=== PATIENT | female | born 1995 | race American Indian/Alaskan Native ===

== ENCOUNTER 2018-08-10 17:00 | Emergency (ER) | payer OTHER ==
--- NOTE | 2018-08-10 18:17 | EDM.PDOC ---
<Anupama Boucher - Last Filed: 08/10/18 18:11> ED HPI GENERAL MEDICAL PROBLEM - General Chief Complaint: Skin Complaint Stated Complaint: RASH ON HANDS Time Seen by Provider: 08/10/18 17:51 Source of Information: Reports: Patient, RN Notes Reviewed, Significant Other History Limitations: Reports: No Limitations - History of Present Illness INITIAL COMMENTS - FREE TEXT/NARRATIVE: Ingrid is a 22 year old female who presents to the ED with a rash on the volar aspect of her hands. She is accompanied by her mother and fiance. She states that she first noticed it on 3 days ago (Friday) after staying in the [facility] in [place]. She states that this rash is itchy, burning, and spreading up her forearm. She denies any new allergens except the soap at the hotel. She also endorses spending some time outdoors in the cold and wind without gloves on. She states she had tried some alcohol wipes with no relief. She also used Benadryl cream a few times which did temporize the itch. Patient denies any allergies. - Related Data Allergies Allergy/AdvReac Type Severity Reaction Status Date / Time No Known Allergies Allergy Verified 08/10/18 17:10 Home Meds: Home Meds Permethrin 60 gm TP ASDIRECTED #1 tube 08/10/18 [Rx] Past Medical History - Past Health History Medical/Surgical History: Denies Medical/Surgical History Social & Family History - Tobacco Use Smoking Status *Q: Never Smoker - Caffeine Use Caffeine Use: Reports: None - Recreational Drug Use Recreational Drug Use: No ED ROS GENERAL - Review of Systems Review Of Systems: ROS reveals no pertinent complaints other than HPI. ED EXAM, SKIN/RASH Exam: See Below Exam Limited By: No Limitations General Appearance: Alert, WD/WN, No Apparent Distress Throat/Mouth: Normal Inspection Head: Atraumatic, Normocephalic Neck: Normal Inspection, Supple, Non-Tender, Full Range of Motion Respiratory/Chest: No Respiratory Distress Peripheral Pulses: 4+: Radial (L), Radial (R) Location, Skin: Upper Extremity, Right, Upper Extremity, Left Characteristics: Macular, Linear, Erythematous, Other (volar aspect of bilateral hands, blanchable, pink macular rash that is somewhat linear in nature. sparse. spares the web space of the fingers and palms. patient does have a few brown linear scabs from scratching) Associated features: No: Warmth, Tenderness, Swelling Course - Vital Signs Last Recorded V/S: Last Vital Signs Temp 98.1 F 08/10/18 17:07 Pulse 82 08/10/18 17:07 Resp 18 08/10/18 17:07 BP 123/66 08/10/18 17:07 Pulse Ox 99 08/10/18 17:07 Departure - Departure Disposition: Home, Self-Care 01 Clinical Impression: Scabies - Discharge Information Prescriptions: Permethrin 60 gm TP ASDIRECTED #1 tube Instructions: Scabies, Adult Referrals: PCP,Not In Area [Primary Care Provider] - Forms: ED Department Discharge Additional Instructions: Apply the cream to the affected areas one time. Repeat in 2 weeks. may use OTC lotion free of dyes and perfumes to help with pruritus in the meantime. Wash bedding, etc to prevent reinfection. Scabies is spread by direct contact. Do you best to keep your hands covered to prevent spread. Follow-up with family medicine if not resolved in 3 weeks. Please return the ER if symptoms change or worsen. <Theresa Robles F - Last Filed: 08/10/18 23:18> ED HPI GENERAL MEDICAL PROBLEM - History of Present Illness INITIAL COMMENTS - FREE TEXT/NARRATIVE: I have seen the patient and agree with the HPI as documented by KOKI Agrawal. Correction to HPI, The rash is on the dorsal aspect of the bilateral hands. Patient's significant other is also complaining of symptoms. ED ROS GENERAL - Review of Systems Review Of Systems: See Below Constitutional: Denies: Fever, Chills ED EXAM, SKIN/RASH Exam: See Below Neurological: Alert, Oriented, Normal Cognition Psychiatric: Normal Affect, Normal Mood Skin: Warm, Dry, Other (erythematous burrows appreciated to the dorsal bilateral hands) Course - Re-Assessments/Exams Free Text/Narrative Re-Assessment/Exam: 08/10/18 18:17 I have seen the patient and agree with the HPI, ROS and PE as documented buy Koki Agrawal Discharge instructions as documented. Departure - Departure Time of Disposition: 18:21 Condition: Fair - Discharge Information *PRESCRIPTION DRUG MONITORING PROGRAM REVIEWED*: No *COPY OF PRESCRIPTION DRUG MONITORING REPORT IN PATIENT TRACE: No
== END 2018-08-10 18:50 | disposition home or self-care (01) ==
LOC: JD.ED 17:00
DX: O98.819 Other maternal infectious and parasitic diseases complicating pregnancy, unspecified trimester (principal); B86 Scabies; Z3A.00 Weeks of gestation of pregnancy not specified
CPT/HCPCS: 99283

== ENCOUNTER 2018-11-22 06:04 | Inpatient (IN) | payer OTHER ==
[2018-11-22] MEDS ORDERED: Sodium Chloride 0.9% 10 ML Syringe FLUSH PRN (06:50)
[2018-11-22] MEDS ORDERED: Nalbuphine 20 MG/ML 1 ML Syringe IVPUSH PRN (06:50)
[2018-11-22] MEDS ORDERED: Lidocaine 1% 50 ML MDV INJECT ONE (06:50)
[2018-11-22] MEDS ORDERED: Oxytocin/Lactated Ringers 10 UNIT/1,000 ML BAG IV SCH (07:00)
[2018-11-22] MEDS ORDERED: Lactated Ringers 1,000 ML IV SCH (07:00)
--- NOTE | 2018-11-22 08:39 | PCM.LDHP ---
L&D History of Present Illness - General Date of Service: 11/22/18 Admit Problem/Dx: Patient Status Order with Admit Dx/Problem 11/22/18 06:19 Patient Status [ADT] Routine 11/22/18 06:50 Patient Status [ADT] Routine Admission Diagnosis/Problem Admission Diagnosis/Problem Source of Information: Patient History Limitations: Reports: No Limitations - History of Present Illness Introduction:: Patient is a 23 y/o at 37 4/7 wks who presents in labor. Seen yesterday for slight spotting / contractions and found to only be 1 cm dilated. Was discharged to home. Contracted all through the night and re-presented this AM. SVE showed her to be 4 cm on nursing assessment - Related Data Allergies/Adverse Reactions: Allergies Allergy/AdvReac Type Severity Reaction Status Date / Time No Known Allergies Allergy Verified 08/24/18 17:32 Home Medications: Home Meds Permethrin 60 gm TP ASDIRECTED #1 tube 08/10/18 [Rx] Past Medical History S[employer]KER History: Reports: : 1 Para: 0 - Past Surgical History HEENT Surgical History: Reports: Oral Surgery (tooth extraction) Social & Family History - Family History Family Medical History: Noncontributory - Tobacco Use Smoking Status *Q: Never Smoker Second Hand Smoke Exposure: No - Caffeine Use Caffeine Use: Reports: None - Alcohol Use Alcohol Use History: No - Recreational Drug Use Recreational Drug Use: No H&P Review of Systems - Review of Systems: Review Of Systems: See Below General: Reports: No Symptoms Pulmonary: Reports: No Symptoms Cardiovascular: Reports: No Symptoms Gastrointestinal: Reports: No Symptoms Genitourinary: Reports: No Symptoms Musculoskeletal: Reports: No Symptoms Psychiatric: Reports: No Symptoms Neurological: Reports: No Symptoms L&D Exam - Exam Exam: See Below - Vital Signs Weight: 83.461 kg - OB Specific Contraction Intensity: Moderate to Strong Movement: Active Heart Tones: Present Heart Tones per Min: 145 Heart Rate (FHR) Variability: Moderate (6-25 bmp) Presentation: Vertex - Whitt Score Whitt Score Cervix Position: Midposition Whitt Score Consistency: Medium Whitt Score Effacement: 51-70% Whitt Score Dilation: 3-4 cm Whitt Score 's Station: -2 Whitt Score Total: 7 - Exam General: Alert, Oriented, Cooperative Lungs: Clear to Auscultation, Normal Respiratory Effort Cardiovascular: Regular Rate, Regular Rhythm GI/Abdominal Exam: Soft, Non-Tender Genitourinary: Normal external exam Extremities: Normal Inspection Skin: Warm, Dry, Intact - Patient Data Lab Results Last 24 hrs: Laboratory Results - last 24 hr 11/22/18 11/22/18 Range/Units 07:10 07:10 WBC 11.78 H (3.98-10.04) K/mm3 RBC 4.02 (3.98-5.22) M/mm3 Hgb 10.0 L (11.2-15.7) gm/L Hct 32.5 L (34.1-44.9) % MCV 80.8 (79.4-94.8) fl MCH 24.9 L (25.6-32.2) pg MCHC 30.8 L (32.2-35.5) g/dl RDW Std Deviation 42.5 (36.4-46.3) fL Plt Count 214 (182-369) K/mm3 MPV 12.4 H (9.4-12.3) fl Neut % (Auto) 82.2 H (34.0-71.1) % Lymph % (Auto) 12.3 L (19.3-51.7) % [place] % (Auto) 4.6 L (4.7-12.5) % Eos % (Auto) 0 L (0.7-5.8) Baso % (Auto) 0.1 (0.1-1.2) % Neut # (Auto) 9.68 H (1.56-6.13) K/mm3 Lymph # (Auto) 1.45 (1.18-3.74) K/mm3 [place] # (Auto) 0.54 H (0.24-0.36) K/mm3 Eos # (Auto) 0.00 L (0.04-0.36) K/mm3 Baso # (Auto) 0.01 (0.01-0.08) K/mm3 Blood Type A POSITIVE Gel Antibody Screen Negative Result Diagrams: 11/22/18 07:10 - Problem List (1) 37 weeks gestation of SNOMED Code(s): 83309808 ICD Code: Z3A.37 - 37 WEEKS GESTATION OF Status: Acute Current Visit: Yes (2) Normal labor SNOMED Code(s): 74830932 ICD Code: O80 - ENCOUNTER FOR FULL-TERM UNCOMPLICATED DELIVERY; Z37.9 - OUTCOME OF DELIVERY, UNSPECIFIED Status: Acute Current Visit: Yes Problem List Initiated/Reviewed/Updated: Yes Orders Last 24hrs: Active Orders 24 hr Category Date Time Status Patient Status [ADT] Routine ADT 11/22/18 06:50 Active Activity as Tolerated [RC] PFP Care 11/22/18 06:50 Active Communication Order [RC] ASDIRECTED Care 11/22/18 06:50 Active Heart Tones [RC] ASDIRECTED Care 11/22/18 06:50 Active Non Stress Test [RC] PER UNIT ROUTINE Care 11/22/18 06:19 Active Notify Provider [RC] PFP Care 11/22/18 06:50 Active Notify Provider [RC] PRN Care 11/22/18 06:50 Active Peripheral IV Care [RC] . DIRECTED Care 11/22/18 06:50 Active Vital Signs [RC] PER UNIT ROUTINE Care 11/22/18 06:19 Active Regular Diet [DIET] Diet 11/22/18 Breakfast Active AMNISURE RUPTURE MEMBRAN [BF] Stat Lab 11/22/18 06:19 Ordered RAPID PLASMA REAGIN,RPR [CHEM] Routine Lab 11/22/18 07:10 Received Lactated Ringers [Ringers, Lactated] 1,000 ml Med 11/22/18 07:00 Active IV ASDIRECTED Nalbuphine [Nubain] Med 11/22/18 06:50 Active 10 mg IVPUSH Q2H PRN Oxytocin/Lactated Ringers [Pitocin in LR 10 Units/1,000 Med 11/22/18 07:00 Active ML] 10 unit in 1,000 ml IV .CONTINUOUS Sodium Chloride 0.9% [Saline Flush] Med 11/22/18 06:50 Active 10 ml FLUSH ASDIRECTED PRN Electronic Heart Tones Ext w TOCO [WOMSER] Oth 11/22/18 06:50 Ordered Routine Electronic Heart Tones Internal [WOMSER] Per Unit Oth 11/22/18 06:50 Ordered Routine Peripheral IV Insertion Adult [OM.PC] Routine Oth 11/22/18 06:50 Ordered Resuscitation Status Routine Resus Stat 11/22/18 06:19 Ordered Medication Orders Lactated Ringer's (Ringers, Lactated) 1,000 mls @ 100 mls/hr IV ASDIRECTED JUWAN Oxytocin/Lactated Ringer's (Pitocin In Lr 10 Units/1,000 Ml) 10 unit in 1,000 mls @ 500 mls/hr IV .CONTINUOUS JUWAN Nalbuphine HCl (Nubain) 10 mg IVPUSH Q2H PRN PRN Reason: pain Sodium Chloride (Saline Flush) 10 ml FLUSH ASDIRECTED PRN PRN Reason: Keep Vein Open Assessment/Plan Comment:: Labor * Labs on admission * GBS collected yesterday on triage. Contacted lab and they state will not be back until this PM. As patient is full term and without risk factors will not start antibiotics at this time * Pain management per patient preference * Anticipate
--- NOTE | 2018-11-22 10:52 | PCM.PNLD ---
Labor Progress Note - VS & Meds Vital Signs: Last Vital Signs Temp 36.8 C 11/22/18 06:24 Pulse 88 11/22/18 06:24 Resp 16 11/22/18 06:24 BP 122/67 11/22/18 06:24 Pulse Ox 98 11/22/18 06:24 Active Medications: Current Medications Lactated Ringer's (Ringers, Lactated) 1,000 mls @ 100 mls/hr IV ASDIRECTED JUWAN Oxytocin/Lactated Ringer's (Pitocin In Lr 10 Units/1,000 Ml) 10 unit in 1,000 mls @ 500 mls/hr IV .CONTINUOUS JUWAN Nalbuphine HCl (Nubain) 10 mg IVPUSH Q2H PRN PRN Reason: pain Sodium Chloride (Saline Flush) 10 ml FLUSH ASDIRECTED PRN PRN Reason: Keep Vein Open Discontinued Medications Lidocaine HCl (Xylocaine 1%) 10 ml INJECT ONETIME ONE Stop: 11/22/18 06:51 - Uterine Contractions Uterine Monitoring Mode: External [place] Contraction Intensity: Moderate to Strong - Monitoring Monitor Mode: External Ultrasound Heart Rate (FHR) Baseline: 130 Heart Rate (FHR) Variability: Moderate (6-25 bmp) Accelerations: Present, 15x15 Decelerations: None Strip Review: Category I - Vaginal Exam Dilation (cm): 6 Effacement (Percent): 80 Station: -1 Cervical Position: Midposition - Labor Progress (Free Text) Labor Progress: Doing well. Continue present management
--- NOTE | 2018-11-22 11:33 | PCM.SN ---
- Free Text/Narrative Note: 11/22/2018 - 1130 Patient's mother stops nurse and myself. Worried we are traumatizing her daughter by labor lasting so long. Wants us to start pitocin or break her daughter's water. Reviewed with both patient and her mother that pitocin can not be started at this time. Patient is ginette every 3 minutes and making good change. Pitocin might at this time cause harm. I am certainly willing to break her water, but this does not have to be done right now if she doesn't want. While labor can be long and certainly painful this does not mean it is unsafe. Patient voiced an understanding of this. In tub and so does not want to come out to have water broken yet. Patient's mother unhappy, but does not object further Shanita Erickson MD
--- NOTE | 2018-11-22 13:18 | PCM.PNLD ---
Labor Progress Note - VS & Meds Vital Signs: Last Vital Signs Temp 36.8 C 11/22/18 06:24 Pulse 88 11/22/18 06:24 Resp 16 11/22/18 06:24 BP 122/67 11/22/18 06:24 Pulse Ox 98 11/22/18 06:24 Active Medications: Current Medications Lactated Ringer's (Ringers, Lactated) 1,000 mls @ 100 mls/hr IV ASDIRECTED JUWAN Oxytocin/Lactated Ringer's (Pitocin In Lr 10 Units/1,000 Ml) 10 unit in 1,000 mls @ 500 mls/hr IV .CONTINUOUS JUWAN Nalbuphine HCl (Nubain) 10 mg IVPUSH Q2H PRN PRN Reason: pain Last Admin: 11/22/18 11:37 Dose: 10 mg Sodium Chloride (Saline Flush) 10 ml FLUSH ASDIRECTED PRN PRN Reason: Keep Vein Open Discontinued Medications Lidocaine HCl (Xylocaine 1%) 10 ml INJECT ONETIME ONE Stop: 11/22/18 06:51 - Uterine Contractions Uterine Monitoring Mode: External [place] Contraction Intensity: Moderate to Strong - Monitoring Monitor Mode: External Ultrasound Heart Rate (FHR) Baseline: 14 Heart Rate (FHR) Variability: Moderate (6-25 bmp) Accelerations: Present, 15x15 Decelerations: None Strip Review: Category I - Vaginal Exam Dilation (cm): 8 Effacement (Percent): 80 Station: 1 Cervical Position: Anterior - Labor Progress (Free Text) Labor Progress: Doing well. Requests AROM which was done. Fluid clear
[2018-11-22] MEDS ORDERED: Lidocaine 1% 50 ML MDV ONE (15:10)
--- NOTE | 2018-11-22 15:53 | PCM.DEL ---
L & D Note - General Info Date of Service: 11/22/18 - Delivery Note Labor: Spontaneous Delivery Outcome: Livebirth Delivery Method: Spontaneous Vaginal Delivery-Single Delivery Mode: Spontaneous Presentation: Right Occiput Anterior (YANIRA) Nuchal Cord: None Anesthesia Type: None Amniotic Fluid Description: Clear Episiotomy Type: None Laceration: 2nd Degree, Perineal Suture type: Vicryl Suture size: 2-0 Placenta: Intact, Spontaneous Cord: 3 Vessels Estimated Blood Loss: 200 Resuscitation Needed: Yes [place]: Bulb Syringe, Stimulated, Warmed, [place] Used Delivery Comments (Free Text/Narrative):: Patient found to be complete and began pushing. With maternal pushign effort head delivered from an YANIRA presentation. No nuchal cord present. With gentle downward traction the shoulders and body delivered. Infant placed on maternal abdomen. Cord clamped and cut. Cord blood obtained. Placenta allowed time to separate and expelled intact. Inspection of the perineum showed a 2nd degree laceration which was repaired with a 2-0 vicryl in the typical fashion - General Info Date of Service: 11/22/18 - Patient Data Vitals - Most Recent: Last Vital Signs Temp 36.8 C 11/22/18 06:24 Pulse 88 11/22/18 06:24 Resp 16 11/22/18 06:24 BP 122/67 11/22/18 06:24 Pulse Ox 98 11/22/18 06:24 Weight - Most Recent: 83.461 kg Lab Results Last 24 Hours: Laboratory Results - last 24 hr 11/22/18 11/22/18 11/22/18 Range/Units 07:10 07:10 07:10 WBC 11.78 H (3.98-10.04) K/mm3 RBC 4.02 (3.98-5.22) M/mm3 Hgb 10.0 L (11.2-15.7) gm/L Hct 32.5 L (34.1-44.9) % MCV 80.8 (79.4-94.8) fl MCH 24.9 L (25.6-32.2) pg MCHC 30.8 L (32.2-35.5) g/dl RDW Std Deviation 42.5 (36.4-46.3) fL Plt Count 214 (182-369) K/mm3 MPV 12.4 H (9.4-12.3) fl Neut % (Auto) 82.2 H (34.0-71.1) % Lymph % (Auto) 12.3 L (19.3-51.7) % [place] % (Auto) 4.6 L (4.7-12.5) % Eos % (Auto) 0 L (0.7-5.8) Baso % (Auto) 0.1 (0.1-1.2) % Neut # (Auto) 9.68 H (1.56-6.13) K/mm3 Lymph # (Auto) 1.45 (1.18-3.74) K/mm3 [place] # (Auto) 0.54 H (0.24-0.36) K/mm3 Eos # (Auto) 0.00 L (0.04-0.36) K/mm3 Baso # (Auto) 0.01 (0.01-0.08) K/mm3 RPR Non-reactive (NONREACTIVE) Blood Type A POSITIVE Gel Antibody Screen Negative Med Orders - Current: Current Medications Lactated Ringer's (Ringers, Lactated) 1,000 mls @ 100 mls/hr IV ASDIRECTED JUWAN Oxytocin/Lactated Ringer's (Pitocin In Lr 10 Units/1,000 Ml) 10 unit in 1,000 mls @ 500 mls/hr IV .CONTINUOUS JUWAN Nalbuphine HCl (Nubain) 10 mg IVPUSH Q2H PRN PRN Reason: pain Last Admin: 11/22/18 11:37 Dose: 10 mg Sodium Chloride (Saline Flush) 10 ml FLUSH ASDIRECTED PRN PRN Reason: Keep Vein Open Discontinued Medications Lidocaine HCl (Xylocaine 1%) 10 ml INJECT ONETIME ONE Stop: 11/22/18 06:51 Lidocaine HCl (Xylocaine 1%) Confirm Administered Dose 50 ml .ROUTE .STK-MED ONE Stop: 11/22/18 15:11 - Problem List & Annotations (1) 37 weeks gestation of SNOMED Code(s): 96146648 Code(s): Z3A.37 - 37 WEEKS GESTATION OF Status: Acute Current Visit: Yes (2) Normal labor SNOMED Code(s): 92051176 Code(s): O80 - ENCOUNTER FOR FULL-TERM UNCOMPLICATED DELIVERY; Z37.9 - OUTCOME OF DELIVERY, UNSPECIFIED Status: Acute Current Visit: Yes (3) Vaginal delivery SNOMED Code(s): 559620956 Code(s): O80 - ENCOUNTER FOR FULL-TERM UNCOMPLICATED DELIVERY Status: Acute Current Visit: Yes - Problem List Review Problem List Initiated/Reviewed/Updated: Yes - Assessment Assessment:: 23 y/o G1 now P1001 PPD#0 from - Plan Plan:: * Routine cares * Encourage breast feeding * Discharge home in 1-2 days
[2018-11-22] MEDS ORDERED: Lanolin 100% Cream 7 GM Tube TOP PRN (16:51)
[2018-11-22] MEDS ORDERED: Benzocaine/Menthol 20%-0.5% Spray 56 GM Canister TOP PRN (16:51)
[2018-11-22] MEDS ORDERED: Docusate Sodium 100 MG Cap PO PRN (16:51)
[2018-11-22] MEDS ORDERED: Acetaminophen 325 MG Tab PO PRN (16:51)
[2018-11-22] MEDS: Witch Hazel Medicated Pads 40/Jar TOP PRN (18:32)
[2018-11-22] MEDS: Ibuprofen 600 MG Tab PO PRN (18:32)
[2018-11-23] MEDS: Ibuprofen 600 MG Tab PO PRN ×3 (04:14→18:04)
--- NOTE | 2018-11-23 06:50 | PCM.PNPP ---
- General Info Date of Service: 11/23/18 Functional Status: Reports: Pain Controlled, Tolerating Diet, Ambulating, Urinating - Review of Systems General: Reports: No Symptoms Pulmonary: Reports: No Symptoms Cardiovascular: Reports: No Symptoms Gastrointestinal: Reports: No Symptoms Genitourinary: Reports: Other (some perineal discomfort) Musculoskeletal: Reports: No Symptoms Neurological: Reports: No Symptoms - Patient Data Vital Signs - Most Recent: Last Vital Signs Temp 37.2 C 11/23/18 04:13 Pulse 102 H 11/23/18 04:13 Resp 16 11/23/18 04:13 BP 123/60 11/23/18 04:13 Pulse Ox 98 11/23/18 04:13 Weight - Most Recent: 83.461 kg I&O - Last 24 Hours: Intake & Output 11/22/18 11/22/18 11/23/18 14:59 22:59 06:59 Intake Total 700 Balance 700 Lab Results - Last 24 Hours: Laboratory Results - last 24 hr 11/22/18 11/22/18 11/22/18 Range/Units 07:10 07:10 07:10 WBC 11.78 H (3.98-10.04) K/mm3 RBC 4.02 (3.98-5.22) M/mm3 Hgb 10.0 L (11.2-15.7) gm/L Hct 32.5 L (34.1-44.9) % MCV 80.8 (79.4-94.8) fl MCH 24.9 L (25.6-32.2) pg MCHC 30.8 L (32.2-35.5) g/dl RDW Std Deviation 42.5 (36.4-46.3) fL Plt Count 214 (182-369) K/mm3 MPV 12.4 H (9.4-12.3) fl Neut % (Auto) 82.2 H (34.0-71.1) % Lymph % (Auto) 12.3 L (19.3-51.7) % [place] % (Auto) 4.6 L (4.7-12.5) % Eos % (Auto) 0 L (0.7-5.8) Baso % (Auto) 0.1 (0.1-1.2) % Neut # (Auto) 9.68 H (1.56-6.13) K/mm3 Lymph # (Auto) 1.45 (1.18-3.74) K/mm3 [place] # (Auto) 0.54 H (0.24-0.36) K/mm3 Eos # (Auto) 0.00 L (0.04-0.36) K/mm3 Baso # (Auto) 0.01 (0.01-0.08) K/mm3 RPR Non-reactive (NONREACTIVE) Blood Type A POSITIVE Gel Antibody Screen Negative Med Orders - Current: Current Medications Acetaminophen (Tylenol) 650 mg PO Q4H PRN PRN Reason: mild pain or fever Benzocaine/Menthol (Dermoplast Pain Relief [place]) 0 gm TOP ASDIRECTED PRN PRN Reason: Perineal Comfort Measure Last Admin: 11/22/18 18:32 Dose: 1 applic Docusate Sodium (Colace) 100 mg PO BID PRN PRN Reason: Constipation Emollient Ointment (Lansinoh Hpa) 0 gm TOP ASDIRECTED PRN PRN Reason: Sore Nipples Ibuprofen (Motrin) 600 mg PO Q6H PRN PRN Reason: Mild pain or fever Last Admin: 11/23/18 04:14 Dose: 600 mg Witch Emiliana (Tucks) 1 pad TOP ASDIRECTED PRN PRN Reason: Perineal Comfort Measure Last Admin: 11/22/18 18:32 Dose: 1 applic Discontinued Medications Lactated Ringer's (Ringers, Lactated) 1,000 mls @ 100 mls/hr IV ASDIRECTED JUWAN Oxytocin/Lactated Ringer's (Pitocin In Lr 10 Units/1,000 Ml) 10 unit in 1,000 mls @ 500 mls/hr IV .CONTINUOUS JUWAN Lidocaine HCl (Xylocaine 1%) 10 ml INJECT ONETIME ONE Stop: 11/22/18 06:51 Lidocaine HCl (Xylocaine 1%) Confirm Administered Dose 50 ml .ROUTE .STK-MED ONE Stop: 11/22/18 15:11 Nalbuphine HCl (Nubain) 10 mg IVPUSH Q2H PRN PRN Reason: pain Last Admin: 11/22/18 11:37 Dose: 10 mg Sodium Chloride (Saline Flush) 10 ml FLUSH ASDIRECTED PRN PRN Reason: Keep Vein Open - Infant Interaction Infant Disposition, : in Room with Family Interaction: Holding Infant Infant Feeding: Attempted ; Nursed Fair/Poor Support Person: Significant Other - Recovery Exam Fundal Tone: Firm Fundal Level: 1 Fingerbreadths Below Umbilicus Fundal Placement: Midline Lochia Amount: Small, Moderate Lochia Color: Rubra/Red Perineum Description: Edematous Episiotomy/Laceration: Approximated Bladder Status: Voiding Urinary Elimination: Voided - Exam General: Alert, Oriented, Cooperative GI/Abdominal Exam: Soft, Non-Tender Extremities: Normal Inspection Skin: Warm, Dry, Intact - Problem List & Annotations (1) 37 weeks gestation of SNOMED Code(s): 49725603 Code(s): Z3A.37 - 37 WEEKS GESTATION OF Status: Acute Current Visit: Yes (2) Normal labor SNOMED Code(s): 09908499 Code(s): O80 - ENCOUNTER FOR FULL-TERM UNCOMPLICATED DELIVERY; Z37.9 - OUTCOME OF DELIVERY, UNSPECIFIED Status: Acute Current Visit: Yes (3) Vaginal delivery SNOMED Code(s): 687296460 Code(s): O80 - ENCOUNTER FOR FULL-TERM UNCOMPLICATED DELIVERY Status: Acute Current Visit: Yes - Problem List Review Problem List Initiated/Reviewed/Updated: Yes - My Orders Last 24 Hours: My Active Orders 11/22/18 06:19 Resuscitation Status Routine 11/22/18 06:50 Heart Tones [RC] ASDIRECTED 11/22/18 16:51 Activity as Tolerated [RC] PER UNIT ROUTINE Vital Signs [RC] 03,09,15,21 Acetaminophen [Tylenol] 650 mg PO Q4H PRN Benzocaine/Menthol [Dermoplast Pain Relief [place]] See Dose Instructions TOP ASDIRECTED PRN Docusate Sodium [Colace] 100 mg PO BID PRN Ibuprofen [Motrin] 600 mg PO Q6H PRN Lanolin [Lansinoh HPA] See Dose Instructions TOP ASDIRECTED PRN Witch Emiliana [Tucks] 1 pad TOP ASDIRECTED PRN Assess Lochia [WOMSER] Per Unit Routine Assess Uterine Involution [WOMSER] Per Unit Routine Breast Pump [WOMSER] Per Unit Routine Heat Therapy [OM.PC] PRN Ice Therapy [OM.PC] Per Unit Routine Perineal Care [OM.PC] Per Unit Routine Peripheral IV Discontinue [OM.PC] Routine Sitz Bath [OM.PC] Per Unit Routine 11/22/18 Dinner Regular Diet [DIET] 11/23/18 16:51 Heat Therapy [OM.PC] PRN - Assessment Assessment:: 23 y/o G1 now P1001 PPD#1 from - Plan Plan:: * Routine cares * Encourage breast feeding * Discharge home tomorrow
[2018-11-24] MEDS: Ibuprofen 600 MG Tab PO PRN (03:28)
--- NOTE | 2018-11-24 06:06 | PCM.PNPP ---
- General Info Date of Service: 11/24/18 Functional Status: Reports: Pain Controlled, Tolerating Diet, Ambulating, Urinating - Review of Systems General: Reports: No Symptoms Pulmonary: Reports: No Symptoms Cardiovascular: Reports: No Symptoms Gastrointestinal: Reports: No Symptoms Genitourinary: Reports: No Symptoms Musculoskeletal: Reports: No Symptoms Neurological: Reports: No Symptoms - Patient Data Vital Signs - Most Recent: Last Vital Signs Temp 36.8 C 11/24/18 03:03 Pulse 78 11/24/18 03:03 Resp 16 11/24/18 03:03 BP 105/59 L 11/24/18 03:03 Pulse Ox 100 11/24/18 03:03 Weight - Most Recent: 83.461 kg I&O - Last 24 Hours: Intake & Output 11/23/18 11/23/18 11/24/18 14:59 22:59 06:59 Intake Total 60 Balance 60 Med Orders - Current: Current Medications Acetaminophen (Tylenol) 650 mg PO Q4H PRN PRN Reason: mild pain or fever Benzocaine/Menthol (Dermoplast Pain Relief [place]) 0 gm TOP ASDIRECTED PRN PRN Reason: Perineal Comfort Measure Last Admin: 11/22/18 18:32 Dose: 1 applic Docusate Sodium (Colace) 100 mg PO BID PRN PRN Reason: Constipation Emollient Ointment (Lansinoh Hpa) 0 gm TOP ASDIRECTED PRN PRN Reason: Sore Nipples Ibuprofen (Motrin) 600 mg PO Q6H PRN PRN Reason: Mild pain or fever Last Admin: 11/24/18 03:28 Dose: 600 mg Witch Emiliana (Tucks) 1 pad TOP ASDIRECTED PRN PRN Reason: Perineal Comfort Measure Last Admin: 11/22/18 18:32 Dose: 1 applic Discontinued Medications Lactated Ringer's (Ringers, Lactated) 1,000 mls @ 100 mls/hr IV ASDIRECTED JUWAN Oxytocin/Lactated Ringer's (Pitocin In Lr 10 Units/1,000 Ml) 10 unit in 1,000 mls @ 500 mls/hr IV .CONTINUOUS JUWAN Lidocaine HCl (Xylocaine 1%) 10 ml INJECT ONETIME ONE Stop: 11/22/18 06:51 Last Admin: 11/23/18 07:42 Dose: Not Given Lidocaine HCl (Xylocaine 1%) Confirm Administered Dose 50 ml .ROUTE .STK-MED ONE Stop: 11/22/18 15:11 Last Admin: 11/23/18 07:42 Dose: Not Given Nalbuphine HCl (Nubain) 10 mg IVPUSH Q2H PRN PRN Reason: pain Last Admin: 11/22/18 11:37 Dose: 10 mg Sodium Chloride (Saline Flush) 10 ml FLUSH ASDIRECTED PRN PRN Reason: Keep Vein Open - Interaction Infant Disposition, : [place] in Room with Family Infant Interaction: Holding Infant Infant Feeding: Attempted ; Nursed Fair/Poor Support Person: Significant Other - Recovery Exam Fundal Tone: Firm Fundal Level: 1 Fingerbreadths Below Umbilicus Fundal Placement: Midline Lochia Amount: Clots/Tissue Present Lochia Color: Rubra/Red Perineum Description: Other (see below) Other Perinuem Description: quarter size clot when up to BR, fundus firm Episiotomy/Laceration: Approximated Bladder Status: Voiding Urinary Elimination: Voided - Exam General: Alert, Oriented, Cooperative GI/Abdominal Exam: Soft, Non-Tender Extremities: Normal Inspection Skin: Warm, Dry, Intact - Problem List & Annotations (1) 37 weeks gestation of SNOMED Code(s): 81733684 Code(s): Z3A.37 - 37 WEEKS GESTATION OF Status: Acute Current Visit: Yes (2) Normal labor SNOMED Code(s): 61910529 Code(s): O80 - ENCOUNTER FOR FULL-TERM UNCOMPLICATED DELIVERY; Z37.9 - OUTCOME OF DELIVERY, UNSPECIFIED Status: Acute Current Visit: Yes (3) Vaginal delivery SNOMED Code(s): 647654263 Code(s): O80 - ENCOUNTER FOR FULL-TERM UNCOMPLICATED DELIVERY Status: Acute Current Visit: Yes - Problem List Review Problem List Initiated/Reviewed/Updated: Yes - My Orders Last 24 Hours: My Active Orders 11/23/18 16:51 Heat Therapy [OM.PC] PRN 11/24/18 06:06 Ready for Discharge [RC] PER UNIT ROUTINE - Assessment Assessment:: 23 y/o G1 now P1001 PPD#2 from - Plan Plan:: * Routine cares * Encourage breast feeding * Discharge home today
--- NOTE | 2018-11-24 06:06 | PCM.DCSUM1 ---
Discharge Summary - Discharge Data Discharge Date: 11/24/18 Discharge Disposition: Home, Self-Care 01 Condition: Good - Discharge Diagnosis/Problem(s) (1) 37 weeks gestation of SNOMED Code(s): 26349210 ICD Code: Z3A.37 - 37 WEEKS GESTATION OF Status: Acute Current Visit: Yes (2) Normal labor SNOMED Code(s): 33591830 ICD Code: O80 - ENCOUNTER FOR FULL-TERM UNCOMPLICATED DELIVERY; Z37.9 - OUTCOME OF DELIVERY, UNSPECIFIED Status: Acute Current Visit: Yes (3) Vaginal delivery SNOMED Code(s): 581623283 ICD Code: O80 - ENCOUNTER FOR FULL-TERM UNCOMPLICATED DELIVERY Status: Acute Current Visit: Yes - Patient Summary/Data Complications: None Consults: None Recommended Follow-up Testing/Procedures: Follow up in 3 weeks for check Hospital Course: 23 y/o at 37 4/7 wks who presented in labor. Made good change without the need for augmentation. Underwent an uncomplicated . See delivery note. did well and was discharged home on PPD#2 - Patient Instructions Diet: Regular Diet as Tolerated Activity: As Tolerated Activity, Other: Pelvic Rest for 6 weeks Driving: May Drive Today Showering/Bathing: May Shower Showering/Bathing, Other: May Bathe Notify Provider of: Fever, Increased Pain, Swelling and Redness, Drainage, Nausea and/or Vomiting - Discharge Plan *PRESCRIPTION DRUG MONITORING PROGRAM REVIEWED*: Not Applicable *COPY OF PRESCRIPTION DRUG MONITORING REPORT IN PATIENT TRACE: Not Applicable Home Medications: Home Meds Docusate Sodium [Colace] 100 mg PO BID PRN cap 11/22/18 [Rx] Ibuprofen [Motrin] 600 mg PO Q6H PRN tablet 11/22/18 [Rx] Referrals: Susan Becker MD [Physician] - (3 weeks for check) - Discharge Summary/Plan Comment DC Time >30 min.: No - Patient Data Vitals - Most Recent: Last Vital Signs Temp 36.8 C 11/24/18 03:03 Pulse 78 11/24/18 03:03 Resp 16 11/24/18 03:03 BP 105/59 L 11/24/18 03:03 Pulse Ox 100 11/24/18 03:03 Weight - Most Recent: 83.461 kg I&O - Last 24 hours: Intake & Output 11/23/18 11/23/18 11/24/18 14:59 22:59 06:59 Intake Total 60 Balance 60 Med Orders - Current: Current Medications Acetaminophen (Tylenol) 650 mg PO Q4H PRN PRN Reason: mild pain or fever Benzocaine/Menthol (Dermoplast Pain Relief [place]) 0 gm TOP ASDIRECTED PRN PRN Reason: Perineal Comfort Measure Last Admin: 11/22/18 18:32 Dose: 1 applic Docusate Sodium (Colace) 100 mg PO BID PRN PRN Reason: Constipation Emollient Ointment (Lansinoh Hpa) 0 gm TOP ASDIRECTED PRN PRN Reason: Sore Nipples Ibuprofen (Motrin) 600 mg PO Q6H PRN PRN Reason: Mild pain or fever Last Admin: 11/24/18 03:28 Dose: 600 mg Witch Emiliana (Tucks) 1 pad TOP ASDIRECTED PRN PRN Reason: Perineal Comfort Measure Last Admin: 11/22/18 18:32 Dose: 1 applic Discontinued Medications Lactated Ringer's (Ringers, Lactated) 1,000 mls @ 100 mls/hr IV ASDIRECTED JUWAN Oxytocin/Lactated Ringer's (Pitocin In Lr 10 Units/1,000 Ml) 10 unit in 1,000 mls @ 500 mls/hr IV .CONTINUOUS JUWAN Lidocaine HCl (Xylocaine 1%) 10 ml INJECT ONETIME ONE Stop: 11/22/18 06:51 Last Admin: 11/23/18 07:42 Dose: Not Given Lidocaine HCl (Xylocaine 1%) Confirm Administered Dose 50 ml .ROUTE .STK-MED ONE Stop: 11/22/18 15:11 Last Admin: 11/23/18 07:42 Dose: Not Given Nalbuphine HCl (Nubain) 10 mg IVPUSH Q2H PRN PRN Reason: pain Last Admin: 11/22/18 11:37 Dose: 10 mg Sodium Chloride (Saline Flush) 10 ml FLUSH ASDIRECTED PRN PRN Reason: Keep Vein Open
[2018-11-24] MEDS: Witch Hazel Medicated Pads 40/Jar TOP PRN (10:00)
== END 2018-11-24 10:45 | disposition home or self-care (01) | DRG 807 ==
LOC: JD.OBCHECK 06:04 → JD.OB 06:13 → JD.OBCHECK 06:50 → JD.OB 06:50 → OBSVTOIN 15:28 → JD.OB 15:29
PROVIDERS: ADMIT Obstetrics & Gynecology; ATTEND Obstetrics & Gynecology
PROC: 6A550ZT Pheresis of Cord Blood Stem Cells, Single (ICD-10-PCS; principal; 2018-11-22)
PROC: 10E0XZZ Delivery of Products of Conception, External Approach (ICD-10-PCS; principal; 2018-11-22)
PROC: 10907ZC Drainage of Amniotic Fluid, Therapeutic from Products of Conception, Via Natural or Artificial Opening (ICD-10-PCS; principal; 2018-11-22)
PROC: 0KQM0ZZ Repair Perineum Muscle, Open Approach (ICD-10-PCS; principal; 2018-11-22)
DX: O70.1 Second degree perineal laceration during delivery (principal); Z37.0 Single live birth; Z3A.37 37 weeks gestation of pregnancy
CPT/HCPCS: 36415; 59025; 59409; 85025; 86592; 86850; 86900; 86901; A9270-GY; J2300; J2590

== ENCOUNTER 2020-02-05 00:34 | Inpatient (IN) | payer BC ==
[2020-02-05] MEDS ORDERED: Sodium Chloride 0.9% 10 ML Syringe FLUSH PRN (01:04)
[2020-02-05] MEDS ORDERED: Ondansetron 4 MG/2 ML SDV IVPUSH PRN (01:04)
[2020-02-05] MEDS ORDERED: Nalbuphine 10 MG/ML Syringe IVPUSH PRN (01:04)
[2020-02-05] MEDS ORDERED: Oxytocin/Lactated Ringers 10 UNIT/1,000 ML BAG IV SCH ×2 (01:15→04:30)
[2020-02-05] MEDS ORDERED: Lactated Ringers 1,000 ML IV SCH (01:15)
--- NOTE | 2020-02-05 02:06 | PCM.LDHP ---
<Dariana Carlton - Last Filed: 02/05/20 02:36> L&D History of Present Illness - General Date of Service: 02/05/20 Admit Problem/Dx: Patient Status Order with Admit Dx/Problem 02/05/20 00:43 Patient Status [ADT] Routine 02/05/20 01:04 Patient Status [ADT] Routine Admission Diagnosis/Problem Admission Diagnosis/Problem Source of Information: Patient History Limitations: Reports: No Limitations - History of Present Illness Introduction:: Ingrid Olivo is a 24-year-old female at 37 weeks and 3 days gestational age who presents to labor and delivery for contractions. DAVID is 02/23/2020. Timing/Duration: Reports: minutes: (Every 5-10 mins), gradual onset Location, : Reports: Abdomen, Pelvic Quality: Reports: Other (Cramping/contractions) Severity: Moderate Present Illness Comments:: Ingrid Olivo is a 24-year-old female at 37 weeks and 3 days gestational age who presents to labor and delivery for increasing frequency of contractions. DAVID is 02/23/2020. She tells me she started feeling contractions and some mild cramping at ap proximately 2200 HRS on 02/04/2020, which prompted her to present here to L&D. OBGYN History: 24-year-old . DAVID 02/23/2020, which was supported by ultrasound done on 12/01/2019. LMP unknown. She did not have return of menses after delivering her son on 11/22/2018. She was not using control at the time of conception. Past OB History: 1. Male born on 11/22/2018 at 37 weeks and 4 days gestational age, 4 hours of labor. weight of 8 pounds and 9 ounces. Born at [facility] in [place], [place]. Course: She was seen in [facility] for the majority of her care, but unfortunately we do not have those records. She did see Dr. Erickson on 02/01/2020, and there were no concerns or pertinent findings during that visit. She reports to me an uneventful . She would like to breastfeed. She is not planning on an epidural. Group B strep negative. First Trimester Labs (performed in [place], obtained from [place] chart): Blood Type: A positive Antibody screening: Negative Hemoglobin: 12.7 g/dL Hematocrit: 37.7% Platelets: 249,000 K/uL Rubella: Immune RPR: Nonreactive Hepatitis B surface antigen: Negative HIV: Negative Second Trimester Labs (performed in [place], obtained from [place] chart): Hemoglobin: 11.0 g/dL Platelets: 232,000 K/uL Diabetes screen: Negative - Related Data Allergies/Adverse Reactions: Allergies Allergy/AdvReac Type Severity Reaction Status Date / Time No Known Allergies Allergy Verified 08/24/18 17:32 Home Medications: Home Meds Pnv No.95/Ferrous Fum/Folic AC [ Vitamins Tablet] 1 tab PO DAILY 02/05/20 [History] Past Medical History - Past Health History Medical/Surgical History: Denies Medical/Surgical History Cardiovascular History: Reports: None Respiratory History: Reports: None Gastrointestinal History: Reports: None Genitourinary History: Reports: None DEVOPS ARCHITECT History: Reports: Musculoskeletal History: Reports: None Neurological History: Reports: None Psychiatric History: Reports: None Endocrine/Metabolic History: Reports: None Hematologic History: Reports: None Immunologic History: Reports: None Oncologic (Cancer) History: Reports: None Dermatologic History: Reports: None - Infectious Disease History Infectious Disease History: Reports: None - Past Surgical History HEENT Surgical History: Reports: Oral Surgery ([place] teeth removal) Social & Family History - Family History Family Medical History: Noncontributory - Tobacco Use Smoking Status *Q: Never Smoker - Caffeine Use Caffeine Use: Reports: None - Alcohol Use Alcohol Use History: No - Recreational Drug Use Recreational Drug Use: No H&P Review of Systems - Review of Systems: Review Of Systems: See Below General: Reports: No Symptoms HEENT: Reports: No Symptoms Pulmonary: Reports: No Symptoms Cardiovascular: Reports: No Symptoms Gastrointestinal: Reports: No Symptoms Genitourinary: Reports: No Symptoms Musculoskeletal: Reports: No Symptoms Skin: Reports: No Symptoms Psychiatric: Reports: No Symptoms Neurological: Reports: No Symptoms Hematologic/Lymphatic: Reports: No Symptoms Immunologic: Reports: No Symptoms L&D Exam - Exam Exam: See Below - Vital Signs Vital Signs: Last Vital Signs Temp 97.9 F 02/05/20 01:09 Pulse Resp 16 02/05/20 01:09 BP 132/86 02/05/20 01:09 Pulse Ox 96 02/05/20 01:09 Weight: 174 lb - OB Specific Contraction Intensity: Mild to Moderate Movement: Active Heart Tones: Present - Exam General: Alert, Oriented HEENT: Conjunctiva Clear, EOMI, Hearing Intact, Mucosa Moist & [place], Normal Nasal Septum, Posterior Pharynx Clear, Pupils Equal, Pupils Reactive Neck: Supple, Trachea Midline Lungs: Clear to Auscultation, Normal Respiratory Effort Cardiovascular: Regular Rate, Regular Rhythm, Normal S1, Normal S2 GI/Abdominal Exam: Normal Bowel Sounds Rectal Exam: Deferred Genitourinary: Normal external exam Back Exam: Normal Inspection, Full Range of Motion, Other (No CVA tenderness) Extremities: Normal Inspection, Normal Range of Motion, Non-Tender, No Pedal Edema, Normal Capillary Refill Skin: Warm, Dry, Intact Neurological: Cranial Nerves Intact, Reflexes Equal Bilateral DTR: 2+: Bicep (L), Bicep (R), Patella (L), Patella (R) Psychiatric: Alert, Normal Affect, Normal Mood - Patient Data Lab Results Last 24 hrs: Laboratory Results - last 24 hr 02/05/20 Range/Units 01:25 WBC 10.41 H (3.98-10.04) K/mm3 RBC 4.00 (3.98-5.22) M/mm3 Hgb 10.7 L (11.2-15.7) gm/dl Hct 33.7 L (34.1-44.9) % MCV 84.3 D (79.4-94.8) fl MCH 26.8 (25.6-32.2) pg MCHC 31.8 L (32.2-35.5) g/dl RDW Std Deviation 55.1 H (36.4-46.3) fL Plt Count 231 (182-369) K/mm3 MPV 12.3 (9.4-12.3) fl Neut % (Auto) 73.7 H (34.0-71.1) % Lymph % (Auto) 16.5 L (19.3-51.7) % [place] % (Auto) 7.9 (4.7-12.5) % Eos % (Auto) 0.5 L (0.7-5.8) Baso % (Auto) 0.2 (0.1-1.2) % Neut # (Auto) 7.68 H (1.56-6.13) K/mm3 Lymph # (Auto) 1.72 (1.18-3.74) K/mm3 [place] # (Auto) 0.82 H (0.24-0.36) K/mm3 Eos # (Auto) 0.05 (0.04-0.36) K/mm3 Baso # (Auto) 0.02 (0.01-0.08) K/mm3 Manual Slide Review Abnormal smear Result Diagrams: 02/05/20 01:25 Orders Last 24hrs: Active Orders 24 hr Category Date Time Status Patient Status [ADT] Routine ADT 02/05/20 01:04 Active Activity as Tolerated [RC] PFP Care 02/05/20 01:04 Active Communication Order [RC] ASDIRECTED Care 02/05/20 01:04 Active Heart Tones [RC] ASDIRECTED Care 02/05/20 01:04 Active Non Stress Test [RC] PER UNIT ROUTINE Care 02/05/20 01:04 Active Notify Provider [RC] PFP Care 02/05/20 01:04 Active Notify Provider [RC] PRN Care 02/05/20 01:04 Active Peripheral IV Care [RC] . DIRECTED Care 02/05/20 01:04 Active Urinary Catheter Assessment [RC] ASDIRECTED Care 02/05/20 01:04 Active Vital Signs [RC] 09,15,21,03 Care 02/05/20 00:43 Active Vital Signs [RC] PER UNIT ROUTINE Care 02/05/20 01:04 Active CORONAVIRUS COVID-19 [place] [MOLEC] Stat Lab 02/05/20 01:49 Ordered DRUG SCREEN, URINE [URCHEM] Stat Lab 02/05/20 01:25 Received RAPID PLASMA REAGIN,RPR [CHEM] Routine Lab 02/05/20 01:25 Received TYPE AND SCREEN [BBK] Stat Lab 02/05/20 01:25 Received UA W/MICROSCOPIC [URIN] Routine Lab 02/05/20 01:25 Received Lactated Ringers [Ringers, Lactated] 1,000 ml Med 02/05/20 01:15 Active IV ASDIRECTED Nalbuphine [Nubain] Med 02/05/20 01:04 Active 10 mg IVPUSH Q2H PRN Ondansetron [Zofran] Med 02/05/20 01:04 Active 4 mg IVPUSH Q4H PRN Oxytocin/Lactated Ringers [Pitocin in LR 10 Units/1,000 Med 02/05/20 01:15 Active ML] 10 unit in 1,000 ml IV .CONTINUOUS Sodium Chloride 0.9% [Saline Flush] Med 02/05/20 01:04 Active 10 ml FLUSH ASDIRECTED PRN Electronic Heart Tones Ext w TOCO [WOMSER] Ot 02/05/20 01:04 Ordered Routine Electronic Heart Tones Internal [WOMSER] Per Unit Ot 02/05/20 01:04 Ordered Routine Peripheral IV Insertion Adult [OM.PC] Routine Ot 02/05/20 01:04 Ordered Resuscitation Status Routine Resus Stat 02/05/20 00:43 Ordered Medication Orders Lactated Ringer's (Ringers, Lactated) 1,000 mls @ 100 mls/hr IV ASDIRECTED JUWAN Oxytocin/Lactated Ringer's (Pitocin In Lr 10 Units/1,000 Ml) 10 unit in 1,000 mls @ 500 mls/hr IV .CONTINUOUS JUWAN Nalbuphine HCl (Nubain) 10 mg IVPUSH Q2H PRN PRN Reason: Pain Ondansetron HCl (Zofran) 4 mg IVPUSH Q4H PRN PRN Reason: Nausea/Vomiting Sodium Chloride (Saline Flush) 10 ml FLUSH ASDIRECTED PRN PRN Reason: Keep Vein Open Assessment/Plan Comment:: Ingrid Olivo is a 24-year-old female at 37 weeks and 3 days gestational age who presents to labor and delivery for contractions. DAVID is 02/23/2020. We will observe her while her labor progresses. Routine labor care. She plans to breastfeed. She is not planning on an epidural. SAMUEL Brink 02/05/2020 0232 HRS <Beto Healy - Last Filed: 02/05/20 03:04> L&D History of Present Illness - General Admit Problem/Dx: Patient Status Order with Admit Dx/Problem 02/05/20 00:43 Patient Status [ADT] Routine 02/05/20 01:04 Patient Status [ADT] Routine Admission Diagnosis/Problem Admission Diagnosis/Problem L&D Exam - Vital Signs Vital Signs: Last Vital Signs Temp 97.9 F 02/05/20 01:09 Pulse Resp 16 02/05/20 01:09 BP 132/86 02/05/20 01:09 Pulse Ox 96 02/05/20 01:09 - Patient Data Lab Results Last 24 hrs: Laboratory Results - last 24 hr 02/05/20 02/05/20 02/05/20 Range/Units 01:25 01:25 01:25 WBC 10.41 H (3.98-10.04) K/mm3 RBC 4.00 (3.98-5.22) M/mm3 Hgb 10.7 L (11.2-15.7) gm/dl Hct 33.7 L (34.1-44.9) % MCV 84.3 D (79.4-94.8) fl MCH 26.8 (25.6-32.2) pg MCHC 31.8 L (32.2-35.5) g/dl RDW Std Deviation 55.1 H (36.4-46.3) fL Plt Count 231 (182-369) K/mm3 MPV 12.3 (9.4-12.3) fl Neut % (Auto) 73.7 H (34.0-71.1) % Lymph % (Auto) 16.5 L (19.3-51.7) % Boyle % (Auto) 7.9 (4.7-12.5) % Eos % (Auto) 0.5 L (0.7-5.8) Baso % (Auto) 0.2 (0.1-1.2) % Neut # (Auto) 7.68 H (1.56-6.13) K/mm3 Lymph # (Auto) 1.72 (1.18-3.74) K/mm3 [place] # (Auto) 0.82 H (0.24-0.36) K/mm3 Eos # (Auto) 0.05 (0.04-0.36) K/mm3 Baso # (Auto) 0.02 (0.01-0.08) K/mm3 Manual Slide Review Abnormal smear Urine Color (Yellow) Urine Appearance (Clear) Urine pH (5.0-8.0) Ur Specific [place] (1.005-1.030) Urine Protein (Negative) Urine Glucose (UA) (Negative) Urine Ketones (Negative) Urine Occult Blood (Negative) Urine Nitrite (Negative) Urine Bilirubin (Negative) Urine Urobilinogen (0.2-1.0) Ur Leukocyte Esterase (Negative) Urine RBC (0-5) /hpf Urine WBC (0-5) /hpf Ur Squamous Epith Cells (0-5) /hpf Urine Bacteria (FEW) /hpf Urine Mucus (FEW) /hpf Urine Opiates Screen Negative (INMZJJ=489) Ur Buprenorphine Scrn Negative (CUTOFF=10) Ur Oxycodone Screen Negative (OGW5AO=219) Urine Methadone Screen Negative (SNOZAG=343) Ur Propoxyphene Screen Negative (UPLWIN=314) Ur Barbiturates Screen Negative (XODVPK=384) Ur Tricyclics Screen Negative (RLHNPX=820) Ur Phencyclidine Scrn Negative (CUTOFF=25) Ur Amphetamine Screen Negative (OMWOGL=398) U Methamphetamines Scrn Negative (ZMPDAD=376) U Benzodiazepines Scrn Negative (UWYRBY=323) U Cocaine Metab Screen Negative (PWLMJW=274) U Marijuana (THC) Screen Negative (CUTOFF=50) COVID-19 (ELLE) (NEGATIVE) Blood Type A POSITIVE 02/05/20 02/05/20 Range/Units 01:25 02:15 WBC (3.98-10.04) K/mm3 RBC (3.98-5.22) M/mm3 Hgb (11.2-15.7) gm/dl Hct (34.1-44.9) % MCV (79.4-94.8) fl MCH (25.6-32.2) pg MCHC (32.2-35.5) g/dl RDW Std Deviation (36.4-46.3) fL Plt Count (182-369) K/mm3 MPV (9.4-12.3) fl Neut % (Auto) (34.0-71.1) % Lymph % (Auto) (19.3-51.7) % Boyle % (Auto) (4.7-12.5) % Eos % (Auto) (0.7-5.8) Baso % (Auto) (0.1-1.2) % Neut # (Auto) (1.56-6.13) K/mm3 Lymph # (Auto) (1.18-3.74) K/mm3 Boyle # (Auto) (0.24-0.36) K/mm3 Eos # (Auto) (0.04-0.36) K/mm3 Baso # (Auto) (0.01-0.08) K/mm3 Manual Slide Review Urine Color Yellow (Yellow) Urine Appearance Clear (Clear) Urine pH 7.0 (5.0-8.0) Ur Specific [place] 1.015 (1.005-1.030) Urine Protein Negative (Negative) Urine Glucose (UA) Negative (Negative) Urine Ketones Negative (Negative) Urine Occult Blood Negative (Negative) Urine Nitrite Negative (Negative) Urine Bilirubin Negative (Negative) Urine Urobilinogen 0.2 (0.2-1.0) Ur Leukocyte Esterase Negative (Negative) Urine RBC Not seen (0-5) /hpf Urine WBC Not seen (0-5) /hpf Ur Squamous Epith Cells 0-5 (0-5) /hpf Urine Bacteria Not seen (FEW) /hpf Urine Mucus Not seen (FEW) /hpf Urine Opiates Screen (JXCTPH=325) Ur Buprenorphine Scrn (CUTOFF=10) Ur Oxycodone Screen (MBH5PX=535) Urine Methadone Screen (NVBQNT=287) Ur Propoxyphene Screen (HLDLWW=127) Ur Barbiturates Screen (WJJVDX=770) Ur Tricyclics Screen (RADTIP=043) Ur Phencyclidine Scrn (CUTOFF=25) Ur Amphetamine Screen (HJCGTK=447) U Methamphetamines Scrn (NKSPIS=523) U Benzodiazepines Scrn (CAFXPO=621) U Cocaine Metab Screen (LUEBJA=468) U Marijuana (THC) Screen (CUTOFF=50) COVID-19 (ELLE) Negative (NEGATIVE) Blood Type Result Diagrams: 02/05/20 01:25 - Problem List (1) 37 weeks gestation of SNOMED Code(s): 10665635 ICD Code: Z3A.37 - 37 WEEKS GESTATION OF Status: Acute Current Visit: No Problem List Initiated/Reviewed/Updated: No Orders Last 24hrs: Active Orders 24 hr Category Date Time Status Patient Status [ADT] Routine ADT 02/05/20 01:04 Active Activity as Tolerated [RC] PFP Care 02/05/20 01:04 Active Communication Order [RC] ASDIRECTED Care 02/05/20 01:04 Active Heart Tones [RC] ASDIRECTED Care 02/05/20 01:04 Active Non Stress Test [RC] PER UNIT ROUTINE Care 02/05/20 01:04 Active Notify Provider [RC] PFP Care 02/05/20 01:04 Active Notify Provider [RC] PRN Care 02/05/20 01:04 Active Peripheral IV Care [RC] . DIRECTED Care 02/05/20 01:04 Active Urinary Catheter Assessment [RC] ASDIRECTED Care 02/05/20 01:04 Active Vital Signs [RC] 09,15,21,03 Care 02/05/20 00:43 Active Vital Signs [RC] PER UNIT ROUTINE Care 02/05/20 01:04 Active RAPID PLASMA REAGIN,RPR [CHEM] Routine Lab 02/05/20 01:25 Received TYPE AND SCREEN [BBK] Stat Lab 02/05/20 01:25 Results Lactated Ringers [Ringers, Lactated] 1,000 ml Med 02/05/20 01:15 Active IV ASDIRECTED Nalbuphine [Nubain] Med 02/05/20 01:04 Active 10 mg IVPUSH Q2H PRN Ondansetron [Zofran] Med 02/05/20 01:04 Active 4 mg IVPUSH Q4H PRN Oxytocin/Lactated Ringers [Pitocin in LR 10 Units/1,000 Med 02/05/20 01:15 Active ML] 10 unit in 1,000 ml IV .CONTINUOUS Sodium Chloride 0.9% [Saline Flush] Med 02/05/20 01:04 Active 10 ml FLUSH ASDIRECTED PRN Electronic Heart Tones Ext w TOCO [WOMSER] Oth 02/05/20 01:04 Ordered Routine Electronic Heart Tones Internal [WOMSER] Per Unit Oth 02/05/20 01:04 Ordered Routine Peripheral IV Insertion Adult [OM.PC] Routine Oth 02/05/20 01:04 Ordered Resuscitation Status Routine Resus Stat 02/05/20 00:43 Ordered Medication Orders Lactated Ringer's (Ringers, Lactated) 1,000 mls @ 100 mls/hr IV ASDIRECTED JUWAN Oxytocin/Lactated Ringer's (Pitocin In Lr 10 Units/1,000 Ml) 10 unit in 1,000 mls @ 500 mls/hr IV .CONTINUOUS JUWAN Nalbuphine HCl (Nubain) 10 mg IVPUSH Q2H PRN PRN Reason: Pain Ondansetron HCl (Zofran) 4 mg IVPUSH Q4H PRN PRN Reason: Nausea/Vomiting Sodium Chloride (Saline Flush) 10 ml FLUSH ASDIRECTED PRN PRN Reason: Keep Vein Open Assessment/Plan Comment:: Patient seen, examined by me and discussed with student.
--- NOTE | 2020-02-05 03:14 | PCM.SN.2 ---
- Free Text/Narrative Note: Amniotomy performed at 0310 clear fluid, FHT's cat I before and after amniotomy
[2020-02-05] MEDS ORDERED: Azithromycin 500 MG in Sodium Chloride 0.9% 250 ML IV ONE (04:57)
--- NOTE | 2020-02-05 04:58 | PCM.SN.2 ---
- Free Text/Narrative Note: intolerance of labor. Cervix remains 7-8 cm, 0 station. Called for section at 0453.
[2020-02-05] MEDS ORDERED: Metoclopramide 10 MG/2 ML SDV ONE (04:59)
[2020-02-05] MEDS ORDERED: Citric Acid/Sodium Citrate Solution 30 ML Cup ONE (04:59)
[2020-02-05] MEDS ORDERED: Sodium Chloride 0.9% 250 ML ONE (05:01)
[2020-02-05] MEDS ORDERED: Azithromycin 500 MG Vial ONE (05:09)
[2020-02-05] MEDS ORDERED: ceFAZolin 1 GM Vial ONE (05:10)
[2020-02-05] MEDS ORDERED: Phenylephrine 1% 10 MG/ML SDV ONE (05:10)
[2020-02-05] MEDS ORDERED: Lidocaine 2% with EPINEPHrine 1:200,000 20 ML SDV ONE (05:11)
[2020-02-05] MEDS ORDERED: Bupivacaine 0.5% 30 ML SDV ONE (05:15)
[2020-02-05] MEDS ORDERED: Lactated Ringers 1,000 ML ONE (05:18)
[2020-02-05] MEDS ORDERED: Oxytocin 10 Units/1 ML SDV ONE (05:24)
--- NOTE | 2020-02-05 05:50 | PCM.DEL ---
L & D Note - General Info Date of Service: 02/05/20 Mother's Due Date: 02/23/20 - Delivery Note Labor: Spontaneous, Augmented by Oxytocin Delivery Outcome: Livebirth (Ill liveborn 02/05/2020 at 0519 hrs. in operating room Apgars 8/9 Dr. Noyola delivery weight 2470 g 5 pounds 7.1 ounces male around right lower extremity) Delivery Method: Spontaneous Vaginal Delivery-Single Delivery Mode: Spontaneous Presentation: Right Occiput Anterior (YANIRA) Nuchal Cord: None (Cord around right lower extremity) Prep: Povidone-Iodine (Betadine Anesthesia Type: None Amniotic Fluid Description: Clear Episiotomy Type: None Laceration: None Placenta: Intact, Spontaneous (Yadi is at 0525 hrs. on 02/05/2020 multiple calcifications and small placenta dystrophic) Cord: 3 Vessels Estimated Blood Loss: 250 : Suctioned, Bulb Syringe, Stimulated, Warmed, Melissa Used, Warmer Used Provider: Beto Healy Score 1 min: 8 Score 5 min: 9 - General Info Date of Service: 02/05/20 Functional Status: Reports: Pain Controlled - Review of Systems General: Reports: No Symptoms HEENT: Reports: No Symptoms Pulmonary: Reports: No Symptoms Cardiovascular: Reports: No Symptoms Gastrointestinal: Reports: No Symptoms Genitourinary: Reports: No Symptoms Musculoskeletal: Reports: No Symptoms Skin: Reports: No Symptoms Neurological: Reports: No Symptoms Psychiatric: Reports: No Symptoms - Patient Data Vitals - Most Recent: Last Vital Signs Temp 97.9 F 02/05/20 01:09 Pulse Resp 16 02/05/20 01:09 BP 132/86 02/05/20 01:09 Pulse Ox 96 02/05/20 01:09 Weight - Most Recent: 174 lb Lab Results Last 24 Hours: Laboratory Results - last 24 hr 02/05/20 02/05/20 02/05/20 Range/Units 01:25 01:25 01:25 WBC 10.41 H (3.98-10.04) K/mm3 RBC 4.00 (3.98-5.22) M/mm3 Hgb 10.7 L (11.2-15.7) gm/dl Hct 33.7 L (34.1-44.9) % MCV 84.3 D (79.4-94.8) fl MCH 26.8 (25.6-32.2) pg MCHC 31.8 L (32.2-35.5) g/dl RDW Std Deviation 55.1 H (36.4-46.3) fL Plt Count 231 (182-369) K/mm3 MPV 12.3 (9.4-12.3) fl Neut % (Auto) 73.7 H (34.0-71.1) % Lymph % (Auto) 16.5 L (19.3-51.7) % [place] % (Auto) 7.9 (4.7-12.5) % Eos % (Auto) 0.5 L (0.7-5.8) Baso % (Auto) 0.2 (0.1-1.2) % Neut # (Auto) 7.68 H (1.56-6.13) K/mm3 Lymph # (Auto) 1.72 (1.18-3.74) K/mm3 [place] # (Auto) 0.82 H (0.24-0.36) K/mm3 Eos # (Auto) 0.05 (0.04-0.36) K/mm3 Baso # (Auto) 0.02 (0.01-0.08) K/mm3 Manual Slide Review Abnormal smear Urine Color (Yellow) Urine Appearance (Clear) Urine pH (5.0-8.0) Ur Specific [place] (1.005-1.030) Urine Protein (Negative) Urine Glucose (UA) (Negative) Urine Ketones (Negative) Urine Occult Blood (Negative) Urine Nitrite (Negative) Urine Bilirubin (Negative) Urine Urobilinogen (0.2-1.0) Ur Leukocyte Esterase (Negative) Urine RBC (0-5) /hpf Urine WBC (0-5) /hpf Ur Squamous Epith Cells (0-5) /hpf Urine Bacteria (FEW) /hpf Urine Mucus (FEW) /hpf Urine Opiates Screen Negative (WTAXJD=688) Ur Buprenorphine Scrn Negative (CUTOFF=10) Ur Oxycodone Screen Negative (AWX3UD=729) Urine Methadone Screen Negative (UGQDBD=715) Ur Propoxyphene Screen Negative (YEEQRR=074) Ur Barbiturates Screen Negative (AWIVNA=394) Ur Tricyclics Screen Negative (MYKNYL=311) Ur Phencyclidine Scrn Negative (CUTOFF=25) Ur Amphetamine Screen Negative (HJYCKF=652) U Methamphetamines Scrn Negative (WEDRSJ=120) U Benzodiazepines Scrn Negative (AERGTE=070) U Cocaine Metab Screen Negative (IFKWLM=774) U Marijuana (THC) Screen Negative (CUTOFF=50) COVID-19 (ELLE) (NEGATIVE) Blood Type A POSITIVE Gel Antibody Screen Negative 02/05/20 02/05/20 Range/Units 01:25 02:15 WBC (3.98-10.04) K/mm3 RBC (3.98-5.22) M/mm3 Hgb (11.2-15.7) gm/dl Hct (34.1-44.9) % MCV (79.4-94.8) fl MCH (25.6-32.2) pg MCHC (32.2-35.5) g/dl RDW Std Deviation (36.4-46.3) fL Plt Count (182-369) K/mm3 MPV (9.4-12.3) fl Neut % (Auto) (34.0-71.1) % Lymph % (Auto) (19.3-51.7) % [place] % (Auto) (4.7-12.5) % Eos % (Auto) (0.7-5.8) Baso % (Auto) (0.1-1.2) % Neut # (Auto) (1.56-6.13) K/mm3 Lymph # (Auto) (1.18-3.74) K/mm3 [place] # (Auto) (0.24-0.36) K/mm3 Eos # (Auto) (0.04-0.36) K/mm3 Baso # (Auto) (0.01-0.08) K/mm3 Manual Slide Review Urine Color Yellow (Yellow) Urine Appearance Clear (Clear) Urine pH 7.0 (5.0-8.0) Ur Specific [place] 1.015 (1.005-1.030) Urine Protein Negative (Negative) Urine Glucose (UA) Negative (Negative) Urine Ketones Negative (Negative) Urine Occult Blood Negative (Negative) Urine Nitrite Negative (Negative) Urine Bilirubin Negative (Negative) Urine Urobilinogen 0.2 (0.2-1.0) Ur Leukocyte Esterase Negative (Negative) Urine RBC Not seen (0-5) /hpf Urine WBC Not seen (0-5) /hpf Ur Squamous Epith Cells 0-5 (0-5) /hpf Urine Bacteria Not seen (FEW) /hpf Urine Mucus Not seen (FEW) /hpf Urine Opiates Screen (QDCTMX=713) Ur Buprenorphine Scrn (CUTOFF=10) Ur Oxycodone Screen (FGT9NF=743) Urine Methadone Screen (QHUIEK=942) Ur Propoxyphene Screen (YKLQTW=673) Ur Barbiturates Screen (DAPBYP=407) Ur Tricyclics Screen (HIHGBT=591) Ur Phencyclidine Scrn (CUTOFF=25) Ur Amphetamine Screen (JUTDQH=035) U Methamphetamines Scrn (BHYPKX=164) U Benzodiazepines Scrn (HXEGZM=143) U Cocaine Metab Screen (KVIYPS=109) U Marijuana (THC) Screen (CUTOFF=50) COVID-19 (ELLE) Negative (NEGATIVE) Blood Type Gel Antibody Screen Med Orders - Current: Current Medications Lactated Ringer's (Ringers, Lactated) 1,000 mls @ 100 mls/hr IV ASDIRECTED JUWAN Last Admin: 02/05/20 04:31 Dose: 100 mls/hr Documented by: Oxytocin/Lactated Ringer's (Pitocin In Lr 10 Units/1,000 Ml) 10 unit in 1,000 mls @ 500 mls/hr IV .CONTINUOUS JUWAN Oxytocin/Lactated Ringer's (Pitocin In Lr 10 Units/1,000 Ml) 10 unit in 1,000 mls @ 12 mls/hr IV TITRATE JUWAN; Protocol Last Admin: 02/05/20 04:31 Dose: 1 munits/min, 6 mls/hr Documented by: Azithromycin 500 mg/ Sodium (Chloride) 250 mls @ 250 mls/hr IV ONETIME ONE Stop: 02/05/20 05:56 Nalbuphine HCl (Nubain) 10 mg IVPUSH Q2H PRN PRN Reason: Pain Ondansetron HCl (Zofran) 4 mg IVPUSH Q4H PRN PRN Reason: Nausea/Vomiting Sodium Chloride (Saline Flush) 10 ml FLUSH ASDIRECTED PRN PRN Reason: Keep Vein Open Discontinued Medications Azithromycin (Zithromax) Confirm Administered Dose 500 mg .ROUTE .STK-MED ONE Stop: 02/05/20 05:10 Bupivacaine HCl (Marcaine 0.5%) Confirm Administered Dose 30 ml .ROUTE .STK-MED ONE Stop: 02/05/20 05:16 Cefazolin Sodium (Ancef) Confirm Administered Dose 2 gm .ROUTE .STK-MED ONE Stop: 02/05/20 05:11 Citric Acid/Sodium Citrate (Bicitra Solution) Confirm Administered Dose 30 ml .ROUTE .STK-MED ONE Stop: 02/05/20 05:00 Sodium Chloride (Normal Saline) Confirm Administered Dose 250 mls @ as directed .ROUTE .STK-MED ONE Stop: 02/05/20 05:02 Lactated Ringer's (Ringers, Lactated) Confirm Administered Dose 1,000 mls @ as directed .ROUTE .STK-MED ONE Stop: 02/05/20 05:19 Lidocaine/Epinephrine (Xylocaine-Mpf 2%-Epi 1:200,000) Confirm Administered Dose 20 ml .ROUTE .STK-MED ONE Stop: 02/05/20 05:12 Metoclopramide HCl (Reglan) Confirm Administered Dose 10 mg .ROUTE .STK-MED ONE Stop: 02/05/20 05:00 Oxytocin (Pitocin) Confirm Administered Dose 20 unit .ROUTE .STK-MED ONE Stop: 02/05/20 05:25 Phenylephrine HCl (Dez-Synephrine) Confirm Administered Dose 10 mg .ROUTE .STK- MED ONE Stop: 02/05/20 05:11 - Exam General: Alert, Oriented Neck: Supple Lungs: Clear to Auscultation, Normal Respiratory Effort Cardiovascular: Regular Rate, Regular Rhythm GI/Abdominal Exam: Normal Bowel Sounds (Female) Exam: Normal External Exam Extremities: Normal Inspection, Non-Tender, No Pedal Edema, Normal Capillary Refill Skin: Warm, Dry, Intact Neurological: No New Focal Deficit Psy/Mental Status: Alert, Normal Affect, Normal Mood - Problem List & Annotations (1) 37 weeks gestation of SNOMED Code(s): 86252971 Code(s): Z3A.37 - 37 WEEKS GESTATION OF Status: Acute Current Visit: No (2) Entanglement of umbilical cord complicating labor and delivery, delivered SNOMED Code(s): 14354378, 024106765 Code(s): O69.82X0 - LABOR AND DEL COMP BY OTH CORD ENTANGLE, W/O COMPRSN, UNSP Status: Acute Current Visit: Yes - Problem List Review Problem List Initiated/Reviewed/Updated: No - My Orders Last 24 Hours: My Active Orders 02/05/20 00:43 Vital Signs [RC] 09,15,21,03 Resuscitation Status Routine 02/05/20 01:04 Patient Status [ADT] Routine Activity as Tolerated [RC] PFP Communication Order [RC] ASDIRECTED Heart Tones [RC] ASDIRECTED Non Stress Test [RC] PER UNIT ROUTINE Notify Provider [RC] PFP Notify Provider [RC] PRN Peripheral IV Care [RC] . DIRECTED Urinary Catheter Assessment [RC] ASDIRECTED Vital Signs [RC] PER UNIT ROUTINE Nalbuphine [Nubain] 10 mg IVPUSH Q2H PRN Ondansetron [Zofran] 4 mg IVPUSH Q4H PRN Sodium Chloride 0.9% [Saline Flush] 10 ml FLUSH ASDIRECTED PRN Electronic Heart Tones Ext w TOCO [WOMSER] Routine Electronic Heart Tones Internal [WOMSER] Per Unit Routine Peripheral IV Insertion Adult [OM.PC] Routine 02/05/20 01:15 Lactated Ringers [Ringers, Lactated] 1,000 ml IV ASDIRECTED Oxytocin/Lactated Ringers [Pitocin in LR 10 Units/1,000 ML] 10 unit in 1,000 ml IV .CONTINUOUS 02/05/20 01:25 RAPID PLASMA REAGIN,RPR [CHEM] Routine 02/05/20 04:30 Oxytocin/Lactated Ringers [Pitocin in LR 10 Units/1,000 ML] 10 unit in 1,000 ml IV TITRATE 02/05/20 04:57 Azithromycin [Zithromax] 500 mg Sodium Chloride 0.9% [Normal Saline] 250 ml IV ONETIME - Plan Plan:: Patient seen, examined by me and discussed with student.
[2020-02-05] MEDS ORDERED: Benzocaine/Menthol 20%-0.5% Spray 56 GM Canister TOP PRN (05:55)
[2020-02-05] MEDS ORDERED: Ibuprofen 600 MG Tab PO PRN (05:55)
[2020-02-05] MEDS ORDERED: Acetaminophen 325 MG Tab PO PRN (05:55)
[2020-02-05] MEDS ORDERED: Docusate Sodium 100 MG Cap PO PRN (05:55)
[2020-02-05] MEDS ORDERED: Witch Hazel Medicated Pads 40/Jar TOP PRN (05:55)
[2020-02-05] MEDS ORDERED: Metoclopramide 10 MG/2 ML SDV IVPUSH ONE (06:02)
[2020-02-05] MEDS ORDERED: Citric Acid/Sodium Citrate Solution 30 ML Cup PO ONE (06:04)
--- NOTE | 2020-02-06 10:41 | PCM.SN.2 ---
- Free Text/Narrative Note: day 1 Afebrile. Chest clear. No abnormal heart rhythm or rate. Abdomen soft. Uterus involuting normally. No heavy vaginal bleeding. No leg cramping. Probably home tomorrow.
--- NOTE | 2020-02-07 11:01 | PCM.DCSUM1 ---
Discharge Summary - Hospital Course Free Text/Narrative:: [place] [facility] L/D Delivery Note Patient Name: AMBROSIO PALMER Date of : 89 Patient Status: Inpatient Attending Provider: Beto Healy Date: 02/05/20 05:45 Initialization Date: 02/05/20 05:45 L & D Note - General Info Date of Service: 02/05/20 Mother's Due Date: 02/23/20 - Delivery Note Labor: Spontaneous, Augmented by Oxytocin Delivery Outcome: Livebirth (Ill liveborn 02/05/2020 at 0519 hrs. in operating room Apgars 8/9 Dr. Noyola delivery weight 2470 g 5 pounds 7.1 ounces male around right lower extremity) Delivery Method: Spontaneous Vaginal Delivery-Single Infant Delivery Mode: Spontaneous Presentation: Right Occiput Anterior (YANIRA) Nuchal Cord: None (Cord around right lower extremity) Prep: Povidone-Iodine (Betadine Anesthesia Type: None Amniotic Fluid Description: Clear Episiotomy Type: None Laceration: None Placenta: Intact, Spontaneous (Yadi is at 0525 hrs. on 02/05/2020 multiple calcifications and small placenta dystrophic) Cord: 3 Vessels Estimated Blood Loss: 250 : Suctioned, Bulb Syringe, Stimulated, Warmed, [place] Used, Warmer Used Provider: Beto Healy Score 1 min: 8 Score 5 min: 9 - General Info Date of Service: 02/05/20 Functional Status: Reports: Pain Controlled - Review of Systems General: Reports: No Symptoms HEENT: Reports: No Symptoms Pulmonary: Reports: No Symptoms Cardiovascular: Reports: No Symptoms Gastrointestinal: Reports: No Symptoms Genitourinary: Reports: No Symptoms Musculoskeletal: Reports: No Symptoms Skin: Reports: No Symptoms Neurological: Reports: No Symptoms Psychiatric: Reports: No Symptoms - Patient Data Vitals - Most Recent: Last Vital Signs Temp 97.9 F 02/05/20 01:09 Pulse Resp 16 02/05/20 01:09 BP 132/86 02/05/20 01:09 Pulse Ox 96 02/05/20 01:09 Weight - Most Recent: 174 lb Lab Results Last 24 Hours: Laboratory Results - last 24 hr 07/18/20 07/18/20 07/18/20 Range/Units 01:25 01:25 01:25 WBC 10.41 H (3.98-10.04) K/mm3 RBC 4.00 (3.98-5.22) M/mm3 Hgb 10.7 L (11.2-15.7) gm/dl Hct 33.7 L (34.1-44.9) % MCV 84.3 D (79.4-94.8) fl MCH 26.8 (25.6-32.2) pg MCHC 31.8 L (32.2-35.5) g/dl RDW Std Deviation 55.1 H (36.4-46.3) fL Plt Count 231 (182-369) K/mm3 MPV 12.3 (9.4-12.3) fl Neut % (Auto) 73.7 H (34.0-71.1) % Lymph % (Auto) 16.5 L (19.3-51.7) % [place] % (Auto) 7.9 (4.7-12.5) % Eos % (Auto) 0.5 L (0.7-5.8) Baso % (Auto) 0.2 (0.1-1.2) % Neut # (Auto) 7.68 H (1.56-6.13) K/mm3 Lymph # (Auto) 1.72 (1.18-3.74) K/mm3 [place] # (Auto) 0.82 H (0.24-0.36) K/mm3 Eos # (Auto) 0.05 (0.04-0.36) K/mm3 Baso # (Auto) 0.02 (0.01-0.08) K/mm3 Manual Slide Review Abnormal smear Urine Color (Yellow) Urine Appearance (Clear) Urine pH (5.0-8.0) Ur Specific [place] (1.005-1.030) Urine Protein (Negative) Urine Glucose (UA) (Negative) Urine Ketones (Negative) Urine Occult Blood (Negative) Urine Nitrite (Negative) Urine Bilirubin (Negative) Urine Urobilinogen (0.2-1.0) Ur Leukocyte Esterase (Negative) Urine RBC (0-5) /hpf Urine WBC (0-5) /hpf Ur Squamous Epith Cells (0-5) /hpf Urine Bacteria (FEW) /hpf Urine Mucus (FEW) /hpf Urine Opiates Screen Negative (SXPVMC=448) Ur Buprenorphine Scrn Negative (CUTOFF=10) Ur Oxycodone Screen Negative (JKX6JS=803) Urine Methadone Screen Negative (HKUSZY=914) Ur Propoxyphene Screen Negative (RWZXXH=389) Ur Barbiturates Screen Negative (WDHDAU=645) Ur Tricyclics Screen Negative (SBFPAG=500) Ur Phencyclidine Scrn Negative (CUTOFF=25) Ur Amphetamine Screen Negative (XJLPKQ=123) U Methamphetamines Scrn Negative (WNCAEI=533) U Benzodiazepines Scrn Negative (NLROSL=595) U Cocaine Metab Screen Negative (EFCRHI=094) U Marijuana (THC) Screen Negative (CUTOFF=50) COVID-19 (ELLE) (NEGATIVE) Blood Type A POSITIVE Gel Antibody Screen Negative 02/05/20 02/05/20 Range/Units 01:25 02:15 WBC (3.98-10.04) K/mm3 RBC (3.98-5.22) M/mm3 Hgb (11.2-15.7) gm/dl Hct (34.1-44.9) % MCV (79.4-94.8) fl MCH (25.6-32.2) pg MCHC (32.2-35.5) g/dl RDW Std Deviation (36.4-46.3) fL Plt Count (182-369) K/mm3 MPV (9.4-12.3) fl Neut % (Auto) (34.0-71.1) % Lymph % (Auto) (19.3-51.7) % [place] % (Auto) (4.7-12.5) % Eos % (Auto) (0.7-5.8) Baso % (Auto) (0.1-1.2) % Neut # (Auto) (1.56-6.13) K/mm3 Lymph # (Auto) (1.18-3.74) K/mm3 [place] # (Auto) (0.24-0.36) K/mm3 Eos # (Auto) (0.04-0.36) K/mm3 Baso # (Auto) (0.01-0.08) K/mm3 Manual Slide Review Urine Color Yellow (Yellow) Urine Appearance Clear (Clear) Urine pH 7.0 (5.0-8.0) Ur Specific [place] 1.015 (1.005-1.030) Urine Protein Negative (Negative) Urine Glucose (UA) Negative (Negative) Urine Ketones Negative (Negative) Urine Occult Blood Negative (Negative) Urine Nitrite Negative (Negative) Urine Bilirubin Negative (Negative) Urine Urobilinogen 0.2 (0.2-1.0) Ur Leukocyte Esterase Negative (Negative) Urine RBC Not seen (0-5) /hpf Urine WBC Not seen (0-5) /hpf Ur Squamous Epith Cells 0-5 (0-5) /hpf Urine Bacteria Not seen (FEW) /hpf Urine Mucus Not seen (FEW) /hpf Urine Opiates Screen (EFXQIF=746) Ur Buprenorphine Scrn (CUTOFF=10) Ur Oxycodone Screen (QVA0BC=170) Urine Methadone Screen (VNDQKT=645) Ur Propoxyphene Screen (RHCLHK=990) Ur Barbiturates Screen (ERJUFK=620) Ur Tricyclics Screen (FHBTLY=607) Ur Phencyclidine Scrn (CUTOFF=25) Ur Amphetamine Screen (HEOQXH=133) U Methamphetamines Scrn (WSCVMS=183) U Benzodiazepines Scrn (NFMXGH=953) U Cocaine Metab Screen (JHDLKB=139) U Marijuana (THC) Screen (CUTOFF=50) COVID-19 (ELLE) Negative (NEGATIVE) Blood Type Gel Antibody Screen Med Orders - Current: Current Medications Lactated Ringer's (Ringers, Lactated) 1,000 mls @ 100 mls/hr IV ASDIRECTED JUWAN Last Admin: 02/05/20 04:31 Dose: 100 mls/hr Documented by: Oxytocin/Lactated Ringer's (Pitocin In Lr 10 Units/1,000 Ml) 10 unit in 1,000 mls @ 500 mls/hr IV .CONTINUOUS JUWAN Oxytocin/Lactated Ringer's (Pitocin In Lr 10 Units/1,000 Ml) 10 unit in 1,000 mls @ 12 mls/hr IV TITRATE JUWAN; Protocol Last Admin: 02/05/20 04:31 Dose: 1 munits/min, 6 mls/hr Documented by: Azithromycin 500 mg/ Sodium (Chloride) 250 mls @ 250 mls/hr IV ONETIME ONE Stop: 02/05/20 05:56 Nalbuphine HCl (Nubain) 10 mg IVPUSH Q2H PRN PRN Reason: Pain Ondansetron HCl (Zofran) 4 mg IVPUSH Q4H PRN PRN Reason: Nausea/Vomiting Sodium Chloride (Saline Flush) 10 ml FLUSH ASDIRECTED PRN PRN Reason: Keep Vein Open Discontinued Medications Azithromycin (Zithromax) Confirm Administered Dose 500 mg .ROUTE .STK-MED ONE Stop: 02/05/20 05:10 Bupivacaine HCl (Marcaine 0.5%) Confirm Administered Dose 30 ml .ROUTE .STK-MED ONE Stop: 02/05/20 05:16 Cefazolin Sodium (Ancef) Confirm Administered Dose 2 gm .ROUTE .STK-MED ONE Stop: 02/05/20 05:11 Citric Acid/Sodium Citrate (Bicitra Solution) Confirm Administered Dose 30 ml .ROUTE .STK-MED ONE Stop: 02/05/20 05:00 Sodium Chloride (Normal Saline) Confirm Administered Dose 250 mls @ as directed .ROUTE .STK-MED ONE Stop: 02/05/20 05:02 Lactated Ringer's (Ringers, Lactated) Confirm Administered Dose 1,000 mls @ as directed .ROUTE .STK-MED ONE Stop: 02/05/20 05:19 Lidocaine/Epinephrine (Xylocaine-Mpf 2%-Epi 1:200,000) Confirm Administered Dose 20 ml .ROUTE .STK-MED ONE Stop: 02/05/20 05:12 Metoclopramide HCl (Reglan) Confirm Administered Dose 10 mg .ROUTE .STK-MED ONE Stop: 02/05/20 05:00 Oxytocin (Pitocin) Confirm Administered Dose 20 unit .ROUTE .STK-MED ONE Stop: 02/05/20 05:25 Phenylephrine HCl (Dez-Synephrine) Confirm Administered Dose 10 mg .ROUTE .STK- MED ONE Stop: 02/05/20 05:11 - Exam General: Alert, Oriented Neck: Supple Lungs: Clear to Auscultation, Normal Respiratory Effort Cardiovascular: Regular Rate, Regular Rhythm GI/Abdominal Exam: Normal Bowel Sounds (Female) Exam: Normal External Exam Extremities: Normal Inspection, Non-Tender, No Pedal Edema, Normal Capillary Refill Skin: Warm, Dry, Intact Neurological: No New Focal Deficit Psy/Mental Status: Alert, Normal Affect, Normal Mood - Problem List & Annotations (1) 37 weeks gestation of SNOMED Code(s): 93448337 Code(s): Z3A.37 - 37 WEEKS GESTATION OF Status: Acute Current Visit: No (2) Entanglement of umbilical cord complicating labor and delivery, delivered SNOMED Code(s): 53294213, 202515896 Code(s): O69.82X0 - LABOR AND DEL COMP BY OTH CORD ENTANGLE, W/O COMPRSN, UNSP Status: Acute Current Visit: Yes - Problem List Review Problem List Initiated/Reviewed/Updated: No - My Orders Last 24 Hours: My Active Orders 02/05/20 00:43 Vital Signs [RC] 09,15,21,03 Resuscitation Status Routine 02/05/20 01:04 Patient Status [ADT] Routine Activity as Tolerated [RC] PFP Communication Order [RC] ASDIRECTED Heart Tones [RC] ASDIRECTED Non Stress Test [RC] PER UNIT ROUTINE Notify Provider [RC] PFP Notify Provider [RC] PRN Peripheral IV Care [RC] . DIRECTED Urinary Catheter Assessment [RC] ASDIRECTED Vital Signs [RC] PER UNIT ROUTINE Nalbuphine [Nubain] 10 mg IVPUSH Q2H PRN Ondansetron [Zofran] 4 mg IVPUSH Q4H PRN Sodium Chloride 0.9% [Saline Flush] 10 ml FLUSH ASDIRECTED PRN Electronic Heart Tones Ext w TOCO [WOMSER] Routine Electronic Heart Tones Internal [WOMSER] Per Unit Routine Peripheral IV Insertion Adult [OM.PC] Routine 02/05/20 01:15 Lactated Ringers [Ringers, Lactated] 1,000 ml IV ASDIRECTED Oxytocin/Lactated Ringers [Pitocin in LR 10 Units/1,000 ML] 10 unit in 1,000 ml IV .CONTINUOUS 02/05/20 01:25 RAPID PLASMA REAGIN,RPR [CHEM] Routine 02/05/20 04:30 Oxytocin/Lactated Ringers [Pitocin in LR 10 Units/1,000 ML] 10 unit in 1,000 ml IV TITRATE 02/05/20 04:57 Azithromycin [Zithromax] 500 mg Sodium Chloride 0.9% [Normal Saline] 250 ml IV ONETIME - Plan Plan:: Patient seen, examined by me and discussed with student. HPI Initial Comments: [place] [facility]IVE L/D Delivery Note Patient Name: AMBROSIO PALMER Date of : 89 Patient Status: Inpatient Attending Provider: Beto Healy Date: 02/05/20 05:45 Initialization Date: 02/05/20 05:45 L & D Note - General Info Date of Service: 02/05/20 Mother's Due Date: 02/23/20 - Delivery Note Labor: Spontaneous, Augmented by Oxytocin Delivery Outcome: Livebirth (Ill liveborn 02/05/2020 at 0519 hrs. in operating room Apgars 8/9 Dr. Noyola delivery weight 2470 g 5 pounds 7.1 ounces male around right lower extremity) Delivery Method: Spontaneous Vaginal Delivery-Single Delivery Mode: Spontaneous Presentation: Right Occiput Anterior (YANIRA) Nuchal Cord: None (Cord around right lower extremity) Prep: Povidone-Iodine (Betadine Anesthesia Type: None Amniotic Fluid Description: Clear Episiotomy Type: None Laceration: None Placenta: Intact, Spontaneous (Yadi is at 0525 hrs. on 02/05/2020 multiple calcifications and small placenta dystrophic) Cord: 3 Vessels Estimated Blood Loss: 250 [place]: Suctioned, Bulb Syringe, Stimulated, Warmed, [place] Used, Warmer Used Provider: Beto Healy Score 1 min: 8 Score 5 min: 9 - General Info Date of Service: 02/05/20 Functional Status: Reports: Pain Controlled - Review of Systems General: Reports: No Symptoms HEENT: Reports: No Symptoms Pulmonary: Reports: No Symptoms Cardiovascular: Reports: No Symptoms Gastrointestinal: Reports: No Symptoms Genitourinary: Reports: No Symptoms Musculoskeletal: Reports: No Symptoms Skin: Reports: No Symptoms Neurological: Reports: No Symptoms Psychiatric: Reports: No Symptoms - Patient Data Vitals - Most Recent: Last Vital Signs Temp 97.9 F 02/05/20 01:09 Pulse Resp 16 02/05/20 01:09 BP 132/86 02/05/20 01:09 Pulse Ox 96 02/05/20 01:09 Weight - Most Recent: 174 lb Lab Results Last 24 Hours: Laboratory Results - last 24 hr 07/02/05/20 02/05/20 Range/Units 01:25 01:25 01:25 WBC 10.41 H (3.98-10.04) K/mm3 RBC 4.00 (3.98-5.22) M/mm3 Hgb 10.7 L (11.2-15.7) gm/dl Hct 33.7 L (34.1-44.9) % MCV 84.3 D (79.4-94.8) fl MCH 26.8 (25.6-32.2) pg MCHC 31.8 L (32.2-35.5) g/dl RDW Std Deviation 55.1 H (36.4-46.3) fL Plt Count 231 (182-369) K/mm3 MPV 12.3 (9.4-12.3) fl Neut % (Auto) 73.7 H (34.0-71.1) % Lymph % (Auto) 16.5 L (19.3-51.7) % [place] % (Auto) 7.9 (4.7-12.5) % Eos % (Auto) 0.5 L (0.7-5.8) Baso % (Auto) 0.2 (0.1-1.2) % Neut # (Auto) 7.68 H (1.56-6.13) K/mm3 Lymph # (Auto) 1.72 (1.18-3.74) K/mm3 [place] # (Auto) 0.82 H (0.24-0.36) K/mm3 Eos # (Auto) 0.05 (0.04-0.36) K/mm3 Baso # (Auto) 0.02 (0.01-0.08) K/mm3 Manual Slide Review Abnormal smear Urine Color (Yellow) Urine Appearance (Clear) Urine pH (5.0-8.0) Ur Specific [place] (1.005-1.030) Urine Protein (Negative) Urine Glucose (UA) (Negative) Urine Ketones (Negative) Urine Occult Blood (Negative) Urine Nitrite (Negative) Urine Bilirubin (Negative) Urine Urobilinogen (0.2-1.0) Ur Leukocyte Esterase (Negative) Urine RBC (0-5) /hpf Urine WBC (0-5) /hpf Ur Squamous Epith Cells (0-5) /hpf Urine Bacteria (FEW) /hpf Urine Mucus (FEW) /hpf Urine Opiates Screen Negative (OUBLIA=665) Ur Buprenorphine Scrn Negative (CUTOFF=10) Ur Oxycodone Screen Negative (HRT1VI=680) Urine Methadone Screen Negative (QYWCEW=774) Ur Propoxyphene Screen Negative (YNWFHX=054) Ur Barbiturates Screen Negative (UKIBSP=183) Ur Tricyclics Screen Negative (KHRFHW=623) Ur Phencyclidine Scrn Negative (CUTOFF=25) Ur Amphetamine Screen Negative (IALPVF=801) U Methamphetamines Scrn Negative (HBMAZU=185) U Benzodiazepines Scrn Negative (VHGXAO=108) U Cocaine Metab Screen Negative (MBXPKV=424) U Marijuana (THC) Screen Negative (CUTOFF=50) COVID-19 (ELLE) (NEGATIVE) Blood Type A POSITIVE Gel Antibody Screen Negative 02/05/20 02/05/20 Range/Units 01:25 02:15 WBC (3.98-10.04) K/mm3 RBC (3.98-5.22) M/mm3 Hgb (11.2-15.7) gm/dl Hct (34.1-44.9) % MCV (79.4-94.8) fl MCH (25.6-32.2) pg MCHC (32.2-35.5) g/dl RDW Std Deviation (36.4-46.3) fL Plt Count (182-369) K/mm3 MPV (9.4-12.3) fl Neut % (Auto) (34.0-71.1) % Lymph % (Auto) (19.3-51.7) % [place] % (Auto) (4.7-12.5) % Eos % (Auto) (0.7-5.8) Baso % (Auto) (0.1-1.2) % Neut # (Auto) (1.56-6.13) K/mm3 Lymph # (Auto) (1.18-3.74) K/mm3 [place] # (Auto) (0.24-0.36) K/mm3 Eos # (Auto) (0.04-0.36) K/mm3 Baso # (Auto) (0.01-0.08) K/mm3 Manual Slide Review Urine Color Yellow (Yellow) Urine Appearance Clear (Clear) Urine pH 7.0 (5.0-8.0) Ur Specific [place] 1.015 (1.005-1.030) Urine Protein Negative (Negative) Urine Glucose (UA) Negative (Negative) Urine Ketones Negative (Negative) Urine Occult Blood Negative (Negative) Urine Nitrite Negative (Negative) Urine Bilirubin Negative (Negative) Urine Urobilinogen 0.2 (0.2-1.0) Ur Leukocyte Esterase Negative (Negative) Urine RBC Not seen (0-5) /hpf Urine WBC Not seen (0-5) /hpf Ur Squamous Epith Cells 0-5 (0-5) /hpf Urine Bacteria Not seen (FEW) /hpf Urine Mucus Not seen (FEW) /hpf Urine Opiates Screen (NICVPL=615) Ur Buprenorphine Scrn (CUTOFF=10) Ur Oxycodone Screen (LUE7KP=719) Urine Methadone Screen (RZHQHK=357) Ur Propoxyphene Screen (CMAAKM=180) Ur Barbiturates Screen (SOOKPT=880) Ur Tricyclics Screen (MTLOVF=759) Ur Phencyclidine Scrn (CUTOFF=25) Ur Amphetamine Screen (VNQOCP=201) U Methamphetamines Scrn (ILVTCQ=025) U Benzodiazepines Scrn (IRKXWS=555) U Cocaine Metab Screen (LKOUWS=882) U Marijuana (THC) Screen (CUTOFF=50) COVID-19 (ELLE) Negative (NEGATIVE) Blood Type Gel Antibody Screen Med Orders - Current: Current Medications Lactated Ringer's (Ringers, Lactated) 1,000 mls @ 100 mls/hr IV ASDIRECTED JUWAN Last Admin: 02/05/20 04:31 Dose: 100 mls/hr Documented by: Oxytocin/Lactated Ringer's (Pitocin In Lr 10 Units/1,000 Ml) 10 unit in 1,000 mls @ 500 mls/hr IV .CONTINUOUS JUWAN Oxytocin/Lactated Ringer's (Pitocin In Lr 10 Units/1,000 Ml) 10 unit in 1,000 mls @ 12 mls/hr IV TITRATE JUWAN; Protocol Last Admin: 02/05/20 04:31 Dose: 1 munits/min, 6 mls/hr Documented by: Azithromycin 500 mg/ Sodium (Chloride) 250 mls @ 250 mls/hr IV ONETIME ONE Stop: 02/05/20 05:56 Nalbuphine HCl (Nubain) 10 mg IVPUSH Q2H PRN PRN Reason: Pain Ondansetron HCl (Zofran) 4 mg IVPUSH Q4H PRN PRN Reason: Nausea/Vomiting Sodium Chloride (Saline Flush) 10 ml FLUSH ASDIRECTED PRN PRN Reason: Keep Vein Open Discontinued Medications Azithromycin (Zithromax) Confirm Administered Dose 500 mg .ROUTE .STK-MED ONE Stop: 02/05/20 05:10 Bupivacaine HCl (Marcaine 0.5%) Confirm Administered Dose 30 ml .ROUTE .STK-MED ONE Stop: 02/05/20 05:16 Cefazolin Sodium (Ancef) Confirm Administered Dose 2 gm .ROUTE .STK-MED ONE Stop: 02/05/20 05:11 Citric Acid/Sodium Citrate (Bicitra Solution) Confirm Administered Dose 30 ml .ROUTE .STK-MED ONE Stop: 02/05/20 05:00 Sodium Chloride (Normal Saline) Confirm Administered Dose 250 mls @ as directed .ROUTE .STK-MED ONE Stop: 02/05/20 05:02 Lactated Ringer's (Ringers, Lactated) Confirm Administered Dose 1,000 mls @ as directed .ROUTE .STK-MED ONE Stop: 02/05/20 05:19 Lidocaine/Epinephrine (Xylocaine-Mpf 2%-Epi 1:200,000) Confirm Administered Dose 20 ml .ROUTE .STK-MED ONE Stop: 02/05/20 05:12 Metoclopramide HCl (Reglan) Confirm Administered Dose 10 mg .ROUTE .STK-MED ONE Stop: 02/05/20 05:00 Oxytocin (Pitocin) Confirm Administered Dose 20 unit .ROUTE .STK-MED ONE Stop: 02/05/20 05:25 Phenylephrine HCl (Dez-Synephrine) Confirm Administered Dose 10 mg .ROUTE .STK- MED ONE Stop: 02/05/20 05:11 - Exam General: Alert, Oriented Neck: Supple Lungs: Clear to Auscultation, Normal Respiratory Effort Cardiovascular: Regular Rate, Regular Rhythm GI/Abdominal Exam: Normal Bowel Sounds (Female) Exam: Normal External Exam Extremities: Normal Inspection, Non-Tender, No Pedal Edema, Normal Capillary Refill Skin: Warm, Dry, Intact Neurological: No New Focal Deficit Psy/Mental Status: Alert, Normal Affect, Normal Mood - Problem List & Annotations (1) 37 weeks gestation of SNOMED Code(s): 49159689 Code(s): Z3A.37 - 37 WEEKS GESTATION OF Status: Acute Current Visit: No (2) Entanglement of umbilical cord complicating labor and delivery, delivered SNOMED Code(s): 91595436, 809514770 Code(s): O69.82X0 - LABOR AND DEL COMP BY OTH CORD ENTANGLE, W/O COMPRSN, UNSP Status: Acute Current Visit: Yes - Problem List Review Problem List Initiated/Reviewed/Updated: No - My Orders Last 24 Hours: My Active Orders 02/05/20 00:43 Vital Signs [RC] 09,15,21,03 Resuscitation Status Routine 02/05/20 01:04 Patient Status [ADT] Routine Activity as Tolerated [RC] PFP Communication Order [RC] ASDIRECTED Heart Tones [RC] ASDIRECTED Non Stress Test [RC] PER UNIT ROUTINE Notify Provider [RC] PFP Notify Provider [RC] PRN Peripheral IV Care [RC] . DIRECTED Urinary Catheter Assessment [RC] ASDIRECTED Vital Signs [RC] PER UNIT ROUTINE Nalbuphine [Nubain] 10 mg IVPUSH Q2H PRN Ondansetron [Zofran] 4 mg IVPUSH Q4H PRN Sodium Chloride 0.9% [Saline Flush] 10 ml FLUSH ASDIRECTED PRN Electronic Heart Tones Ext w TOCO [WOMSER] Routine Electronic Heart Tones Internal [WOMSER] Per Unit Routine Peripheral IV Insertion Adult [OM.PC] Routine 02/05/20 01:15 Lactated Ringers [Ringers, Lactated] 1,000 ml IV ASDIRECTED Oxytocin/Lactated Ringers [Pitocin in LR 10 Units/1,000 ML] 10 unit in 1,000 ml IV .CONTINUOUS 02/05/20 01:25 RAPID PLASMA REAGIN,RPR [CHEM] Routine 02/05/20 04:30 Oxytocin/Lactated Ringers [Pitocin in LR 10 Units/1,000 ML] 10 unit in 1,000 ml IV TITRATE 02/05/20 04:57 Azithromycin [Zithromax] 500 mg Sodium Chloride 0.9% [Normal Saline] 250 ml IV ONETIME - Plan Plan:: Patient seen, examined by me and discussed with student. Brief History: [facility] LIVE . L/D Delivery Note. Patient Name: AMBROSIO PALMER TORYMedical Record Number: [id number]. Date of : 89Patient Status: Inpatient. Attending Provider: Beto Healy Number: [id number]. Date: 02/05/20 05:45Initialization Date: 02/05/20 05:45. L & D Note. - General Info. Date of Service: 02/05/20. Mother's Due Date: 02/23/20. - Delivery Note. Labor: Spontaneous, Augmented by Oxytocin. Delivery Outcome: Livebirth (Ill liveborn 02/05/2020 at 0519 hrs. in operating room Apgars 8/9 Dr. Noyola delivery weight 2470 g 5 pounds 7.1 ounces male around right lower extremity). Delivery Method: Spontaneous Vaginal Delivery-Single. Delivery Mode: Spontaneous. Presentation: Right Occiput Anterior (YANRIA). Nuchal Cord: None (Cord around right lower extremity). Prep: Povidone-Iodine (Betadine. Anesthesia Type: None. Amniotic Fluid Description: Clear. Episiotomy Type: None. Laceration: None. Placenta: Intact, Spontaneous (Y[place] is at 0525 hrs. on 02/05/2020 multiple calcifications and small placenta dystrophic). Cord: 3 Vessels. Estimated Blood Loss: 250. : Suctioned, Bulb Syringe, Stimulated, Warmed, [place] Used, Warmer Used. Provider: Beto Healy. Score 1 min: 8. Score 5 min: 9. - General Info. Date of Service: 02/05/20. Functional Status: Reports: Pain Controlled. - Review of Systems. General: Reports: No Symptoms. HEENT: Reports: No Symptoms. Pulmonary: Reports: No Symptoms. Cardiovascular: Reports: No Symptoms. Gastrointestinal: Reports: No Symptoms. Genitourinary: Reports: No Symptoms. Musculoskeletal: Reports: No Symptoms. Skin: Reports: No Symptoms. Neurological: Reports: No Symptoms. Psychiatric: Reports: No Symptoms. - Patient Data. Vitals - Most Recent: Last Vital Signs. Temp 97.9 F 02/05/20 01:09. Pulse. Resp 16 02/05/20 01:09. BP 132/86 02/05/20 01:09. Pulse Ox 96 02/05/20 01:09. Weight - Most Recent: 174 lb. Lab Results Last 24 Hours: Laboratory Results - last 24 hr. 02/04/2007/Range/Units. 01:2501:2501:25. WBC 10.41 H (3.98-10.04) K/mm3. RBC 4.00 (3.98-5.22) M/mm3. Hgb 10.7 L (11.2-15.7) gm/dl. Hct 33.7 L (34.1-44.9) %. MCV 84.3 D (79.4-94.8) fl. MCH 26.8 (25.6-32.2) pg. MCHC 31.8 L (32.2-35.5) g/dl. RDW Std Deviation 55.1 H (36.4-46.3) fL. Plt Count 231 (182-369) K/mm3. MPV 12.3 (9.4-12.3) fl. Neut % (Auto) 73.7 H (34.0- 71.1) %. Lymph % (Auto) 16.5 L (19.3-51.7) %. [place] % (Auto) 7.9 (4.7-12.5) %. Eos % (Auto) 0.5 L (0.7-5.8). Baso % (Auto) 0.2 (0.1-1.2) %. Neut # (Auto) 7.68 H (1.56-6.13) K/mm3. Lymph # (Auto) 1.72 (1.18-3.74) K/mm3. [place] # (Auto) 0.82 H (0.24-0.36) K/mm3. Eos # (Auto) 0.05 (0.04-0.36) K/mm3. Baso # (Auto) 0.02 (0.01-0.08) K/mm3. Manual Slide Review Abnormal smear. Urine Color (Yellow). Urine Appearance (Clear). Urine pH (5.0-8.0). Ur Specific [place] (1.005-1.030). Urine Protein (Negative). Urine Glucose (UA) (Negative). Urine Ketones (Negative). Urine Occult Blood (Negative). Urine Nitrite (Negative). Urine Bilirubin (Negative). Urine Urobilinogen (0.2-1.0). Ur Leukocyte Esterase (Negative). Urine RBC (0-5) /hpf. Urine WBC (0-5) /hpf. Ur Squamous Epith Cells (0-5) /hpf. Urine Bacteria (FEW) /hpf. Urine Mucus (FEW) /hpf. Urine Opiates Screen Negative (KTYNYH=331). Ur Buprenorphine Scrn Negative (CUTOFF=10). Ur Oxycodone Screen Negative (LFA9US=408). Urine Methadone Screen Negative (BUNSAD=904). Ur Propoxyphene Screen Negative (FDTLVL=487). Ur Barbiturates Screen Negative (VYAMUT=960). Ur Tricyclics Screen Negative (LLEUNO=160). Ur Phencyclidine Scrn Negative (CUTOFF=25). Ur Amphetamine Screen Negative (NGWJZJ=392). U Methamphetamines Scrn Negative (WPXYQV=099). U Benzodiazepines Scrn Negative (WHEGBO=853). U Cocaine Metab Screen Negative (GGBAPP=670). U Marijuana (THC) Screen Negative (CUTOFF=50). COVID-19 (ELLE) (NEGATIVE). Blood Type A POSITIVE. Gel Antibody Screen Negative. 02/04/2007/Range/Units. 01:2502:15. WBC (3.98-10.04) K/mm3. RBC (3.98-5.22) M/mm3. Hgb (11.2-15.7) gm/dl. Hct (34.1-44.9) %. MCV (79.4-94.8) fl. MCH (25.6-32.2) pg. MCHC (32.2-35.5) g/dl. RDW Std Deviation (36.4-46.3) fL. Plt Count (182-369) K/mm3. MPV (9.4-12.3) fl. Neut % (Auto) (34.0-71.1) %. Lymph % (Auto) (19.3-51.7) %. Wetzel % (Auto) (4.7-12.5) %. Eos % (Auto) (0.7-5.8). Baso % (Auto) (0.1-1.2) %. Neut # (Auto) (1.56-6.13) K/mm3. Lymph # (Auto) (1.18-3.74) K/mm3. Wetzel # (Auto) (0.24-0.36) K/mm3. Eos # (Auto) (0.04-0.36) K/mm3. Baso # (Auto) (0.01-0.08) K/mm3. Manual Slide Review. Urine Color Yellow (Yellow). Urine Appearance Clear (Clear). Urine pH 7.0 (5.0-8.0). Ur Specific Rock 1.015 (1.005- 1.030). Urine Protein Negative (Negative). Urine Glucose (UA) Negative (Negative). Urine Ketones Negative (Negative). Urine Occult Blood Negative (Negative). Urine Nitrite Negative (Negative). Urine Bilirubin Negative (Negative). Urine Urobilinogen 0.2 (0.2-1.0). Ur Leukocyte Esterase Negative (Negative). Urine RBC Not seen (0-5) /hpf. Urine WBC Not seen (0-5) /hpf. Ur Squamous Epith Cells 0-5 (0-5) /hpf. Urine Bacteria Not seen (FEW) /hpf. Urine Mucus Not seen (FEW) /hpf. Urine Opiates Screen (JXBXME=453). Ur Buprenorphine Scrn (CUTOFF=10). Ur Oxycodone Screen (YQI0NR=926). Urine Methadone Screen (HZIKCM=043). Ur Propoxyphene Screen (ZPBUGF=552). Ur Barbiturates Screen (LCYYXG=600). Ur Tricyclics Screen (RZVXJA=497). Ur Phencyclidine Scrn (CUTOFF=25). Ur Amphetamine Screen (YVAJMD=690). U Methamphetamines Scrn (BCXFOX=989). U Benzodiazepines Scrn (UIDQXU=510). U Cocaine Metab Screen (LHPMGY=302). U Marijuana (THC) Screen (CUTOFF=50). COVID-19 (ELLE) Negative (NEGATIVE). Blood Type. Gel Antibody Screen. Med Orders - Current: Current Medications. Lactated Ringer's (Ringers, Lactated) 1,000 mls @ 100 mls/hr IV ASDIRECTED JUWAN. Last Admin: 02/05/20 04:31 Dose: 100 mls/hr. Documented by: Oxytocin/Lactated Ringer's (Pitocin In Lr 10 Units/1,000 Ml) 10 unit in 1,000 mls @ 500 mls/hr IV .CONTINUOUS JUWAN. Oxytocin/Lactated Ringer's (Pitocin In Lr 10 Units/1,000 Ml) 10 unit in 1,000 mls @ 12 mls/hr IV TITRATE JUWAN; Protocol. Last Admin: 02/05/20 04:31 Dose: 1 munits/min, 6 mls/hr. Documented by: Azithromycin 500 mg/ Sodium (Chloride) 250 mls @ 250 mls/hr IV ONETIME ONE. Stop: 02/05/20 05:56. Nalbuphine HCl (Nubain) 10 mg IVPUSH Q2H PRN. PRN Reason: Pain. Ondansetron HCl (Zofran) 4 mg IVPUSH Q4H PRN. PRN Reason: Nausea/Vomiting. Sodium Chloride (Saline Flush) 10 ml FLUSH ASDIRECTED PRN. PRN Reason: Keep Vein Open. Discontinued Medications. Azithromycin (Zithromax) Confirm Administered Dose 500 mg .ROUTE .STK-MED ONE. Stop: 02/05/20 05:10. Bupivacaine HCl (Marcaine 0.5%) Confirm Administered Dose 30 ml .ROUTE .STK-MED ONE. Stop: 02/05/20 05:16. Cefazolin Sodium (Ancef) Confirm Administered Dose 2 gm .ROUTE .STK-MED ONE. Stop: 02/05/20 05:11. Citric Acid/Sodium Citrate (Bicitra Solution) Confirm Administered Dose 30 ml .ROUTE .STK-MED ONE. Stop: 02/05/20 05:00. Sodium Chloride (Normal Saline) Confirm Administered Dose 250 mls @ as directed .ROUTE .STK-MED ONE. Stop: 02/05/20 05:02. Lactated Ringer's (Ringers, Lactated) Confirm Administered Dose 1,000 mls @ as directed .ROUTE .STK-MED ONE. Stop: 02/05/20 05:19. Lidocaine/Epinephrine (Xylocaine-Mpf 2%-Epi 1:200,000) Confirm Administered Dose 20 ml .ROUTE .STK-MED ONE. Stop: 02/05/20 05:12. Metoclopramide HCl (Reglan) Confirm Administered Dose 10 mg .ROUTE .STK-MED ONE. Stop: 02/05/20 05:00. Oxytocin (Pitocin) Confirm Administered Dose 20 unit .ROUTE .STK-MED ONE. Stop: 02/05/20 05:25. Phenylephrine HCl (Dez-Synephrine) Confirm Administered Dose 10 mg .ROUTE .STK-MED ONE. Stop: 02/05/20 05:11. - Exam. General: Alert, Oriented. Neck: Supple. Lungs: Clear to Auscultation, Normal Respiratory Effort. Cardiovascular: Regular Rate, Regular Rhythm. GI/Abdominal Exam: Normal Bowel Sounds. (Female) Exam: Normal External Exam. Extremities: Normal Inspection, Non-Tender, No Pedal Edema, Normal Capillary Refill. Skin: Warm, Dry, Intact. Neurological: No New Focal Deficit. Psy/Mental Status: Alert, Normal Affect, Normal Mood. - Problem List & Annotations. (1) 37 weeks gestation of . SNOMED Code(s): 19662607. Code(s): Z3A.37 - 37 WEEKS GESTATION OF Status: Acute Current Visit: No. (2) Entanglement of umbilical cord complicating labor and delivery, delivered. SNOMED Code(s): 74290883, 160410808. Code(s): O69.82X0 - LABOR AND DEL COMP BY OT CORD ENTANGLE, W/O COMPRSN, UNSP Status: Acute Current Visit: Yes. - Problem List Review. Problem List Initiated/Reviewed/Updated: No. - My Orders. Last 24 Hours: My Active Orders. 02/05/20 00:43. Vital Signs [RC] 09,15,21,03. Resuscitation Status Routine. 02/05/20 01:04. Patient Status [ADT] Routine. Activity as Tolerated [RC] PFP. Communication Order [RC] ASDIRECTED. Heart Tones [RC] ASDIRECTED. Non Stress Test [RC] PER UNIT ROUTINE. Notify Provider [RC] PFP. Notify Provider [RC] PRN. Peripheral IV Care [RC] . DIRECTED. Urinary Catheter Assessment [RC] ASDIRECTED. Vital Signs [RC] PER UNIT ROUTINE. Nalbuphine [Nubain] 10 mg IVPUSH Q2H PRN. Ondansetron [Zofran] 4 mg IVPUSH Q4H PRN. Sodium Chloride 0.9% [Saline Flush] 10 ml FLUSH ASDIRECTED PRN. Electronic Heart Tones Ext w TOCO [WOMSER] Routine. Electronic Heart Tones Internal [WOMSER] Per Unit Routine. Peripheral IV Insertion Adult [OM.PC] Routine. 02/05/20 01:15. Lactated Ringers [Ringers, Lactated] 1,000 ml IV ASDIRECTED. Oxytocin/Lactated Ringers [Pitocin in LR 10 Units/1,000 ML] 10 unit in 1,000 ml IV .CONTINUOUS. 02/05/20 01:25. RAPID PLASMA REAGIN,RPR [CHEM] Routine. 02/05/20 04:30. Oxytocin/Lactated Ringers [Pitocin in LR 10 Units/1,000 ML] 10 unit in 1,000 ml IV TITRATE. 02/05/20 04:57. Azithromycin [Zithromax] 500 mg Sodium Chloride 0.9% [Normal Saline] 250 ml IV ONETIME. - Plan. Plan:: Patient seen, examined by me and discussed with student. Diagnosis: Stroke: No - Discharge Data Discharge Date: 02/07/20 Discharge Disposition: Home, Self-Care 01 Condition: Good - Referral to Home Health Primary Care Physician: Beto Healy MD - Discharge Diagnosis/Problem(s) (1) 37 weeks gestation of SNOMED Code(s): 89888857 ICD Code: Z3A.37 - 37 WEEKS GESTATION OF Status: Acute Current Visit: No (2) Entanglement of umbilical cord complicating labor and delivery, delivered SNOMED Code(s): 77908919, 020952957 ICD Code: O69.82X0 - LABOR AND DEL COMP BY OTH CORD ENTANGLE, W/O COMPRSN, U NSP Status: Acute Current Visit: Yes - Patient Summary/Data Complications: None Consults: None Hospital Course: Uneventful - Patient Instructions Diet: Usual Diet as Tolerated Driving: Do Not Drive (X48 hours) Showering/Bathing: May Shower Notify Provider of: Fever, Increased Pain, Swelling and Redness, Drainage, Nausea and/or Vomiting - Discharge Plan *PRESCRIPTION DRUG MONITORING PROGRAM REVIEWED*: Not Applicable *COPY OF PRESCRIPTION DRUG MONITORING REPORT IN PATIENT TRACE: Not Applicable Home Medications: Home Meds Pnv No.95/Ferrous Fum/Folic AC [ Vitamins Tablet] 1 tab PO DAILY 02/05/20 [History] Acetaminophen [Tylenol] 650 mg PO Q6H PRN tablet 02/07/20 [Rx] Benzocaine/Menthol [Dermoplast Pain Relief [place]] 1 spray TOP ASDIRECTED PRN canister 02/07/20 [Rx] Docusate Sodium [Colace] 100 mg PO BID PRN cap 02/07/20 [Rx] Ibuprofen [Motrin] 600 mg PO Q6H PRN tablet 02/07/20 [Rx] witch Emiliana [Tucks] 1 pad TOP ASDIRECTED PRN pad 02/07/20 [Rx] Patient Handouts: During - Discharge Summary/Plan Comment DC Time >30 min.: No - Patient Data Vitals - Most Recent: Last Vital Signs Temp 97.2 F 02/07/20 04:32 Pulse 69 02/07/20 04:32 Resp 14 02/07/20 04:32 BP 107/82 02/07/20 04:32 Pulse Ox 99 02/07/20 04:32 Weight - Most Recent: 174 lb I&O - Last 24 hours: Intake & Output 02/06/20 02/07/20 02/07/20 22:59 06:59 14:59 Intake Total 240 Balance 240 Med Orders - Current: Current Medications Acetaminophen (Tylenol) 650 mg PO Q4H PRN PRN Reason: mild pain or fever Benzocaine/Menthol (Dermoplast Pain Relief [place]) 0 gm TOP ASDIRECTED PRN PRN Reason: Perineal Comfort Measure Last Admin: 02/06/20 12:51 Dose: 1 applic Documented by: Docusate Sodium (Colace) 100 mg PO BID PRN PRN Reason: Constipation Ibuprofen (Motrin) 600 mg PO Q6H PRN PRN Reason: Mild pain or fever Witch Emiliana (Tucks) 1 pad TOP ASDIRECTED PRN PRN Reason: Perineal Comfort Measure Last Admin: 02/06/20 12:52 Dose: 1 tub Documented by: Discontinued Medications Azithromycin (Zithromax) Confirm Administered Dose 500 mg .ROUTE .STK-MED ONE Stop: 02/05/20 05:10 Bupivacaine HCl (Marcaine 0.5%) Confirm Administered Dose 30 ml .ROUTE .STK-MED ONE Stop: 02/05/20 05:16 Cefazolin Sodium (Ancef) Confirm Administered Dose 2 gm .ROUTE .STK-MED ONE Stop: 02/05/20 05:11 Citric Acid/Sodium Citrate (Bicitra Solution) Confirm Administered Dose 30 ml .ROUTE .STK-MED ONE Stop: 02/05/20 05:00 Last Admin: 02/05/20 05:03 Dose: 30 ml Documented by: Citric Acid/Sodium Citrate (Bicitra Solution) 30 ml PO ONETIME ONE Stop: 02/05/20 06:05 Last Admin: 02/05/20 05:03 Dose: 30 ml Documented by: Lactated Ringer's (Ringers, Lactated) 1,000 mls @ 100 mls/hr IV ASDIRECTED JUWAN Last Admin: 02/05/20 04:31 Dose: 100 mls/hr Documented by: Oxytocin/Lactated Ringer's (Pitocin In Lr 10 Units/1,000 Ml) 10 unit in 1,000 mls @ 500 mls/hr IV .CONTINUOUS JUWAN Oxytocin/Lactated Ringer's (Pitocin In Lr 10 Units/1,000 Ml) 10 unit in 1,000 mls @ 12 mls/hr IV TITRATE JUWAN; Protocol Last Admin: 02/05/20 04:31 Dose: 1 munits/min, 6 mls/hr Documented by: Azithromycin 500 mg/ Sodium (Chloride) 250 mls @ 250 mls/hr IV ONETIME ONE Stop: 02/05/20 05:56 Sodium Chloride (Normal Saline) Confirm Administered Dose 250 mls @ as directed .ROUTE .STK-MED ONE Stop: 02/05/20 05:02 Lactated Ringer's (Ringers, Lactated) Confirm Administered Dose 1,000 mls @ as directed .ROUTE .STK-MED ONE Stop: 02/05/20 05:19 Lidocaine/Epinephrine (Xylocaine-Mpf 2%-Epi 1:200,000) Confirm Administered Dose 20 ml .ROUTE .STK-MED ONE Stop: 02/05/20 05:12 Metoclopramide HCl (Reglan) Confirm Administered Dose 10 mg .ROUTE .STK-MED ONE Stop: 02/05/20 05:00 Last Admin: 02/05/20 05:03 Dose: 10 mg Documented by: Metoclopramide HCl (Reglan) 10 mg IVPUSH ONETIME ONE Stop: 02/05/20 06:03 Last Admin: 02/05/20 05:03 Dose: 10 mg Documented by: Nalbuphine HCl (Nubain) 10 mg IVPUSH Q2H PRN PRN Reason: Pain Ondansetron HCl (Zofran) 4 mg IVPUSH Q4H PRN PRN Reason: Nausea/Vomiting Oxytocin (Pitocin) Confirm Administered Dose 20 unit .ROUTE .STK-MED ONE Stop: 02/05/20 05:25 Phenylephrine HCl (Dez-Synephrine) Confirm Administered Dose 10 mg .ROUTE .STK- MED ONE Stop: 02/05/20 05:11 Sodium Chloride (Saline Flush) 10 ml FLUSH ASDIRECTED PRN PRN Reason: Keep Vein Open
== END 2020-02-07 11:15 | disposition home or self-care (01) | DRG 560 ==
LOC: JD.OBCHECK 00:34 → JD.OB 00:39 → JD.OBCHECK 01:04 → JD.OB 02:31 → OBSVTOIN 05:19 → JD.OB 05:20
PROVIDERS: ADMIT Obstetrics & Gynecology; ATTEND Obstetrics & Gynecology
PROC: 10E0XZZ Delivery of Products of Conception, External Approach (ICD-10-PCS; principal; 2020-02-05)
PROC: 10907ZC Drainage of Amniotic Fluid, Therapeutic from Products of Conception, Via Natural or Artificial Opening (ICD-10-PCS; 2020-02-05)
DX: O69.82X0 Labor and delivery complicated by other cord entanglement, without compression, not applicable or unspecified (principal); Z3A.37 37 weeks gestation of pregnancy; Z37.0 Single live birth; O76 Abnormality in fetal heart rate and rhythm complicating labor and delivery; Z20.828 Contact with and (suspected) exposure to other viral communicable diseases
CPT/HCPCS: 36415; 51702; 59025; 59409; 80306; 81001; 85025; 85027; 86592; 86850; 86900; 86901; A9270-GY; J0690; J2370; J2590; J2765; J3490; J7120; U0002

== ENCOUNTER 2024-01-20 18:07 | Emergency (ER) | payer BC, OTHER ==
[2024-01-20 19:25] LABS: BASOPHILS PERCENT AUTO 0.5 % (0.0-1.0); EOSINOPHILS ABSOLUTE AUTO 0.1 K/mm3 (0.0-0.4); EOSINOPHILS PERCENT AUTO 0.7 % (0.0-6.0); HEMATOCRIT 37.3 % (37.0-47.0); HEMOGLOBIN 12.6 gm/dl (12.0-16.0); IMMATURE GRAN ABSOLUTE AUTO 0.03 K/mm3 (0.00-0.05); IMMATURE GRAN PERCENT AUTO 0.4 % (0.0-0.4); LYMPHOCYTES ABSOLUTE AUTO 2.3 K/mm3 (1.0-4.8); LYMPHOCYTES PERCENT AUTO 31.2 % (24.0-44.0); MEAN CORPUSCULAR HEMOGLOBIN 30.1 pg (28.0-32.0); MEAN CORPUSCULAR HGB CONC 33.8 g/dl (32.0-36.0); MEAN CORPUSCULAR VOLUME 89.2 fl (83.0-99.0); MEAN PLATELET VOLUME 11.8 fl (9.4-12.3); MONOCYTES ABSOLUTE AUTO 0.6 K/mm3 (0.0-0.8); MONOCYTES PERCENT AUTO 8.4 % (0.0-8.0); NEUTROPHILS ABSOLUTE AUTO 4.4 K/mm3 (1.8-7.7); NEUTROPHILS PERCENT AUTO 58.8 % (41.0-71.0); PLATELET COUNT,PLT 235 K/mm3 (150-400); RED BLOOD CELL COUNT 4.18 M/mm3 (4.10-5.30)
[2024-01-20 20:10] LABS: A/G RATIO 1.1 (1-2); ALBUMIN 3.7 g/dl (3.4-5.0); ANION GAP 14.5 (5-15); BILIRUBIN TOTAL 0.3 mg/dL (0.2-1.0); BUN/CREATININE RATIO 7.8 (14-18); CALCIUM 8.8 mg/dL (8.5-10.1); CREATININE 0.9 mg/dL (0.55-1.02); EST CRCL DRUG DOSING (CG) 93.88 mL/min; POTASSIUM,K 3.5 mEq/L (3.5-5.1); PROTEIN TOTAL,TP 7.1 g/dl (6.4-8.2)
== END 2024-01-20 20:45 | disposition home or self-care (01) ==
LOC: JD.ED 18:07
DX: O20.0 Threatened abortion (principal); Z3A.09 9 weeks gestation of pregnancy
CPT/HCPCS: 36415; 76817; 76817-26; 80053; 84702; 85025; 86900; 86901; 99283; 99284

== ENCOUNTER 2025-04-08 17:55 | Observation (INO) | payer OTHER ==
[2025-04-08 19:25] LABS: APPEARANCE,URINE CLEAR (Clear); GLUCOSE,URINE NEGATIVE (Negative); OCCULT BLOOD,URINE 1+ (Negative)
[2025-04-08 19:33] LABS: EPITHELIAL CELLS,URINE 0-5 /hpf (0-5)
== END 2025-04-08 20:24 | disposition home or self-care (01) ==
LOC: JD.OBCHECK 17:55 → JD.OB 17:56 → JD.OBCHECK 18:08
PROVIDERS: ADMIT Obstetrics & Gynecology; ATTEND Obstetrics & Gynecology
DX: Z53.8 Procedure and treatment not carried out for other reasons (principal)
CPT/HCPCS: 59025; 81001; 87086; G0378